=== PATIENT | female | born 1970 | race Caucasian/White ===

== ENCOUNTER 2017-02-02 21:08 | Emergency (ER) | payer OTHER ==
[~2017-02-02] VITALS: Ht 175.3 cm; Wt 90.7 kg
[~2017-02-02 21:08] MED LIST: BENTYL10 MG PO; BUSPIRONE HCL15 MG PO; CARBAMAZEPINE200 M2 PO; CARBAMAZEPINE400 M1 PO; CARBAMAZEPINE400 MG PO; CLONAZEPAM1 MG PO; CLONAZEPAM2 MG PO; DEPLIN15 MG PO; HYDROCODON-ACE1 EA10 PO; LAMICTAL200 MG PO; LAMOTRIGINE200 MG PO; LORAZEPAM1 MG PO; MIRENA1 EACH IY; NORCO 5-325 TA1 EACH PO; NUVARING VAGIN1 EACH VG; OMEPRAZOLE20 MG PO; OXCARBAZEPINE600 MG PO; PHENDIMETRAZIN105 MG PO; PRILOSEC20 MG PO; PRISTIQ ER50 MG PO; TEGRETOL XR400 MG PO; TEGRETOL200 MG PO; TOPAMAX200 MG PO; TOPAMAX50 MG PO; TRAZODONE HCL100 MG PO; VENTOLIN HFA18 GM; VIMPAT100 MG PO; VIMPAT150 MG PO; VIMPAT50 MG PO
[2017-02-03] MEDS ORDERED: ZOFRAN ODT4 MG PO (00:20)
== END 2017-02-03 00:53 | disposition home or self-care (01) ==
LOC: ED 21:08
DX: K29.70 Gastritis, unspecified, without bleeding (principal); R42 Dizziness and giddiness; K21.9 Gastro-esophageal reflux disease without esophagitis; F32.9 Major depressive disorder, single episode, unspecified; F41.9 Anxiety disorder, unspecified; Z98.51 Tubal ligation status; Z88.2 Allergy status to sulfonamides; Z79.899 Other long term (current) drug therapy
CPT/HCPCS: 70450; 80053; 81001; 84703; 85025; 96361; 96374; 96375; 99284; J1200; J2405; J2765; J7040

== ENCOUNTER 2017-12-22 14:24 | Emergency (ER) | payer OTHER ==
[~2017-12-22] VITALS: Ht 175.3 cm; Wt 90.7 kg
[~2017-12-22 14:24] MED LIST changes: +ZOFRAN ODT4 MG PO
[2017-12-22] MEDS ORDERED: NUVARING VAGIN1 EACH VAGINAL (14:45)
[2017-12-22] MEDS ORDERED: VALIUM5 MG PO (17:58)
--- NOTE | 2017-12-23 09:07 | EKG ---
[facility] [address] [facility] [place] [address] Signed Normal sinus rhythm Normal ECG No previous ECGs available Confirmed by MARIE DALE MD ([id number]) on 12/23/2017 9:07:08 AM Electronically Signed By: MARIE DALE MD 12/23/17 0907 PATIENT NAME: YOAN GUZMAN Electrocardiogram DATE OF : 70 PHYSICIAN: MARIE DALE MD REPORT #: [id number] REPORT IS CONFIDENTIAL AND NOT TO BE RELEASED WITHOUT AUTHORIZATION
== END 2017-12-22 18:28 | disposition home or self-care (01) ==
LOC: ED 14:24
DX: R09.1 Pleurisy (principal); B34.9 Viral infection, unspecified; F41.9 Anxiety disorder, unspecified; K21.9 Gastro-esophageal reflux disease without esophagitis; F32.9 Major depressive disorder, single episode, unspecified; Z88.2 Allergy status to sulfonamides; Z88.8 Allergy status to other drugs, medicaments and biological substances; Z79.899 Other long term (current) drug therapy
CPT/HCPCS: 71046; 80053; 84484; 85025; 93005; 93010; 96361; 96374; 96375; 99284; J1885; J2405; J7030

== ENCOUNTER 2018-09-23 18:41 | Emergency (ER) | payer OTHER ==
[~2018-09-23] VITALS: Ht 175.3 cm; Wt 90.7 kg
--- OUTSIDE RECORDS SUMMARY | ~2018-09-23 | XMS | Encounter Summary ---
Demographics + + + | Address | [address] [facility] [address] | | | [place] [address] | + + + | Home Phone | | + + + | Preferred Language | Unknown | + + + | Marital Status | | + + + | Hindu Affiliation | Unknown | + + + | Race | Unknown | + + + | Ethnic Group | Unknown | + + + Author + + + | Author | Maria Del Carmen [employer] | + + + | Organization | [facility] | + + + | Address | Unknown | + + + | Phone | Unavailable | + + + Support + + +---------+ + | Name | Relationship | Address | Phone | + + +---------+ + | Joseline Sepulveda | ECON | Unknown | | + + +---------+ + Care Team Providers + +------+ + | Care Cleaner And Polisher Name | Role | Phone | + +------+ + | Dena Vasquez PA-C | PCP | | + +------+ + Reason for Visit + + + | Reason | Comments | + + + | Medication Refill | problem | + + + Encounter Details +--------+--------+ + + + | Date | Type | Department | Care Team | Description | +--------+--------+ + + + | 08/08/ | Refill | [facility] | Laina Lutz, | | | 2019 | | [facility] | [address] | | | | | [address] | [place] | | | | | [place] | [address] | | | | | [address] | | | | | | [phone] | | | +--------+--------+ + + + Social History + +-------+ +--------+------+ | Tobacco Use | Types | Packs/Day | Years | Date | | | | | Used | | + +-------+ +--------+------+ | Former Smoker | | | | | + +-------+ +--------+------+ + +---+---+---+ | Smokeless Tobacco: | | | | | Never Used | | | | + +---+---+---+ + + +---------+ + | Alcohol Use | Drinks/We | oz/Week | Comments | | | ek | | | + + +---------+ + | No | 0 | 0.0 | | | | Standard | | | | | drinks or | | | | | | | | | | equivalen | | | | | t | | | + + +---------+ + + + + | Sex Assigned at | Date Recorded | | | | + + + | Not on file | | + + + as of this encounter Plan of Treatment +--------+---------+ + + + | Date | Type | Specialty | Care Team | Description | +--------+---------+ + + + | 12/25/ | Office | Neurology | Laina Lutz, | | | 2019 | Visit | | MD [address] | | | | | | [place] | | | | | | [address] | | | | | | | | +--------+---------+ + + + as of this encounter Visit Diagnoses Not on filein this encounter"
--- OUTSIDE RECORDS SUMMARY | ~2018-09-23 | XMS | Clinical Summary ---
Demographics + + + | Address | [address] [facility] [address] | | | [place] [address] | + + + | Home Phone | | + + + | Preferred Language | Unknown | + + + | Marital Status | | + + + | Adventist Affiliation | Unknown | + + + | Race | Unknown | + + + | Ethnic Group | Unknown | + + + Author + + + | Author | Maria Del Carmen [employer] | + + + | Organization | [facility] | + + + | Address | Unknown | + + + | Phone | Unavailable | + + + Support + + +---------+ + | Name | Relationship | Address | Phone | + + +---------+ + | Joseline Sepulveda | ECON | Unknown | | + + +---------+ + Care Team Providers + +------+ + | Care Railroad Police Officer Name | Role | Phone | + +------+ + | Dena Vasquez PA-C | PP | | + +------+ + Allergies + + + + + + | Active Allergy | Reactions | Severity | Noted | Comments | | | | | Date | | + + + + + + | Levetiracetam | Itching | Medium | 12/04/19 | | | | | | 15 | | + + + + + + | Sulfa Antibiotics | Nausea Only, Other | Medium | 11/29/19 | Head pain per | | | (See Comments) | | 14 | patient | + + + + + + Current Medications + + +--------+---------+------+------+-------+ | Prescription | Sig. | Disp. | Refills | Star | End | Statu | | | | | | t | Date | s | | | | | | Date | | | + + +--------+---------+------+------+-------+ | traZODone | Take 100 mg by mouth | | | | | Activ | | (DESYREL) 100 MG | nightly. | | | | | e | | tablet | | | | | | | + + +--------+---------+------+------+-------+ | omeprazole | Take 20 mg by mouth | | | | | Activ | | (PRILOSEC) 20 MG | nightly. | | | | | e | | capsule | | | | | | | + + +--------+---------+------+------+-------+ | CALCIUM CARBONATE | Take 500 mg by mouth | | | | | Activ | | PO | 2 (two) times | | | | | e | | | daily. | | | | | | + + +--------+---------+------+------+-------+ | fish oil-omega-3 | Take 1,000 mg by | | | | | Activ | | fatty acids 1000 MG | mouth 2 (two) times | | | | | e | | capsule | daily. | | | | | | + + +--------+---------+------+------+-------+ | cyanocobalamin | Take 500 mcg by | | | | | Activ | | (VITAMIN B-12) 500 | mouth daily. | | | | | e | | MCG tablet | | | | | | | + + +--------+---------+------+------+-------+ | busPIRone (BUSPAR) | Take 15 mg by mouth | | | | | Activ | | 15 MG tablet | 2 (two) times daily. | | | | | e | + + +--------+---------+------+------+-------+ | L-methylfolate | Take 7.5 mg by mouth | | | | | Activ | | (DEPLIN) 7.5 MG | daily with | | | | | e | | tablet | breakfast. | | | | | | + + +--------+---------+------+------+-------+ | lamoTRIgine | take 1 and 2 | 90 | 5 | 10/1 | | Activ | | (LAMICTAL) 200 MG | tablets by mouth | tablet | | 5/20 | | e | | tablet | every morning and | | | 18 | | | | | every evening | | | | | | + + +--------+---------+------+------+-------+ | OXcarbazepine | take 1 tablet by | 75 | 5 | 10/1 | | Activ | | (TRILEPTAL) 600 MG | mouth every morning | tablet | | 5/20 | | e | | tabletIndications: | and 1 and 1/2 | | | 18 | | | | Refractory epilepsy | tablets by mouth | | | | | | | (HCC) | every evening | | | | | | + + +--------+---------+------+------+-------+ | topiramate | Take 1 tablet by | 60 | 5 | 10/1 | | Activ | | (TOPAMAX) 200 MG | mouth 2 (two) times | tablet | | 5/20 | | e | | tablet | daily. | | | 18 | | | + + +--------+---------+------+------+-------+ | topiramate | Take 1 tablet by | 30 | 5 | 10/1 | | Activ | | (TOPAMAX) 50 MG | mouth every evening. | tablet | | 5/20 | | e | | tablet | | | | 18 | | | + + +--------+---------+------+------+-------+ | clonazePAM | Take 1 tablet by | 30 | 5 | 02/0 | | Activ | | (KLONOPIN) 1 MG | mouth nightly. | tablet | | 4/20 | | e | | tablet | | | | 19 | | | + + +--------+---------+------+------+-------+ Active Problems + + + | Problem | Noted Date | + + + | Convulsions ([facility]) | 08/17/2015 | + + + | Seizure disorder ([facility]) | 11/28/2013 | + + + Encounters +--------+ + + + + | Date | Type | Specialty | Care Team | Description | +--------+ + + + + | 09/20/ | Telephone | | Laina Lutz | Follow-up | | 2018 | | | MD | | +--------+ + + + + | 08/13/ | Telephone | | Chris Tompkins, | | | 2018 | | | MA | | +--------+ + + + + | 08/08/ | Refill | | Laina Lutz, | | | 2018 | | | MD | | +--------+ + + + + | 07/16/ | Telephone | | Laina Lutz, | Labs Only | | 2018 | | | MD | | +--------+ + + + + | 06/29/ | Documentati | | Linda Slater, | Labs Only ([facility] | | 2017 | on Only | | RETREAD BUILDER | lab 05/14/2018) | +--------+ + + + + from Last 3 Months Family History + + +------+ + | Medical History | Relation | Name | Comments | + + +------+ + | Hypertension | Mother | | | + + +------+ + | Stroke | Mother | | | + + +------+ + | Cancer | Other | | per patient "grandmother & aunt" | + + +------+ + + +------+--------+ + | Relation | Name | Status | Comments | + +------+--------+ + | Mother | | | | + +------+--------+ + | Other | | | | + +------+--------+ + Social History + +-------+ +--------+------+ | Tobacco Use | Types | Packs/Day | Years | Date | | | | | Used | | + +-------+ +--------+------+ | Former Smoker | | | | | + +-------+ +--------+------+ + +---+---+---+ | Smokeless Tobacco: | | | | | Never Used | | | | + +---+---+---+ + + | Tobacco Cessation: Counseling Given: No | + + + + +---------+ + | Alcohol Use [...] on file | | + + + Last Filed Vital Signs + + + + | Vital Sign | Reading | Time Taken | + + + + | Blood Pressure | 126/86 | 06/20/2018 11:13 AM PST | + + + + | Pulse | 86 | 06/20/2018 11:13 AM PST | + + + + | Temperature | - | - | + + + + | Respiratory Rate | 16 | 02/15/2017 9:31 AM PDT | + + + + | Oxygen Saturation | 98% | 06/20/2018 11:13 AM PST | + + + + | Inhaled Oxygen | - | - | | Concentration | | | + + + + | Weight | 92.5 kg (204 lb) | 06/20/2018 11:13 AM PST | + + + + | Height | 175.3 cm (5' 9") | 06/20/2018 11:13 AM PST | + + + + | Body Mass Index | 30.13 | 06/20/2018 11:13 AM PST | + + + + Plan of Treatment +--------+---------+ + + + | Date | Type | Specialty | Care Team | Description | +--------+---------+ + + + | 12/25/ | Office | | Laina Lutz, | | | 2019 | Visit | | MD [address] | | | | | | [place] | | | | | | [address] | | | | | | | | +--------+---------+ + + + + + + + + | Health Maintenance | Due Date | Last Done | Comments | + + + + + | Vaccine: | | | | | Dtap/Tdap/Td (1 - | 0 | | | | Tdap) | | | | + + + + + | Cervical Cancer | | | | | Screening (Pap) | 1 | | | + + + + + | Vaccine: Influenza | | | | | (#1) | 8 | | | + + + + + Results Not on filefrom Last 3 Months Insurance + +--------+ +------+-------+ + | Payer | Benefi | Subscriber | Type | Phone | Address | | | t Plan | ID | | | | | | / | | | | | | | Group | | | | | + +--------+ +------+-------+ + | MEDICAID | DONOVAN | [id number] | | | [address] | | | N | | | | [place], [place] | | | [place] | | | | [address] | | | [employer] | | | | | + +--------+ +------+-------+ + + +--------+ +--------+ + + | Guarantor Name | Accoun | Relation to | Date | Phone | Billing Address | | | t Type | Patient | of | | | | | | | | | | + +--------+ +--------+ + + | | Person | Self [birth year] Home: | [address] | | | al/Fam | | 1971 | [phone] | [address] [place] | | | [place] | | | [phone] | + +--------+ +--------+ + +
--- OUTSIDE RECORDS SUMMARY | ~2018-09-23 | XMS | Encounter Summary ---
Demographics + + + | Address | [address] [facility] [address] | | | [place] [address] | + + + | Home Phone | | + + + | Preferred Language | Unknown | + + + | Marital Status | | + + + | Judaism Affiliation | Unknown | + + + | Race | Unknown | + + + | Ethnic Group | Unknown | + + + Author + + + | Author | Maria Del Carmen [employer] | + + + | Organization | [facility] | + + + | Address | Unknown | + + + | Phone | Unavailable | + + + Support + + +---------+ + | Name | Relationship | Address | Phone | + + +---------+ + | Joseline Sepulveda | ECON | Unknown | | + + +---------+ + Care Team Providers + +------+ + | Care Splash Line Operator Name | Role | Phone | + +------+ + | Dena Vasquez PA-C | PCP | | + +------+ + Reason for Visit + + + | Reason | Comments | + + + | Labs Only | [facility] lab 05/14/2018 | + + + Encounter Details +--------+ + + + + | Date | Type | Department | Care Team | Description | +--------+ + + + + | 06/29/ | Documentati | Jayne | Linda Slater, | Labs Only ([facility] | | 2018 | on Only | [facility] | WASH TUB MACHINE OPERATOR | lab 05/14/2018) | | | | [address] | | | | | | [place] | | | | | | [address] | | | | | | [phone] | | | +--------+ + + + + Social History + +-------+ [...] [place] | | | | | | [address] | | | | | | | | +--------+---------+ + + + as of this encounter Visit Diagnoses Not on filein this encounter"
--- OUTSIDE RECORDS SUMMARY | ~2018-09-23 | XMS | Encounter Summary ---
Demographics + + + | Address | [address] [facility] [address] | | | [place] [address] | + + + | Home Phone | | + + + | Preferred Language | Unknown | + + + | Marital Status | | + + + | Religion Affiliation | Unknown | + + + | Race | Unknown | + + + | Ethnic Group | Unknown | + + + Author + + + | Author | Maria Del Carmen [employer] | + + + | Organization | [facility] | + + + | Address | Unknown | + + + | Phone | Unavailable | + + + Support + + +---------+ + | Name | Relationship | Address | Phone | + + +---------+ + | Joseline Sepulveda | ECON | Unknown | | + + +---------+ + Care Team Providers + +------+ + | Care Dipping Machine Operator Name | Role | Phone | [...] | on Only | [facility] | REVISING CLERK | lab 05/14/2018) | | | | [address] | | | | | | [place] | | | | | | [address] | | | | | | [phone] | | | +--------+ + + + [...] [place] | | | | | | [address] | | | | | | | | +--------+---------+ + + + as of this encounter Visit Diagnoses Not on filein this encounter"
--- OUTSIDE RECORDS SUMMARY | ~2018-09-23 | XMS | Clinical Summary ---
Demographics + + + | Address | [address] [facility] [address] | | | [place] [address] | + + + | Home Phone | | + + + | Preferred Language | Unknown | + + + | Marital Status | Single | + + + | Confucianism Affiliation | Unknown | + + + | Race | Unknown | + + + | Ethnic Group | Unknown | + + + Author + + + | Author | [facility] | | | and [place] | + + + | Organization | [facility] | | | and [place] | + + + | Address | Unknown | + + + | Phone | Unavailable | + + + Support + + +---------+ + | Name | Relationship | Address | Phone | + + +---------+ + | Lizett Hernandez | ECON | Unknown | | + + +---------+ + | Joseline Sepulveda | ECON | Unknown | | + + +---------+ + Care Team Providers + +------+ + | Care Tool Coordinator Name | Role | Phone | + +------+ + | Dena Vasquez PA-C | PP | Unavailable | + +------+ + Allergies + + + +--------+ + | Active Allergy | Reactions | Severity | Noted | Comments | | | | | Date | | + + + +--------+ + | Carbamazepine | | | | | + + + +--------+ + | Miconazole | | | | | + + + +--------+ + | Sulfamethoxazole | | | | | + + + +--------+ + Current Medications + + +-------+---------+------+------+-------+ | Prescription | Sig. | Disp. | Refills | Star | End | Statu | | | | | | t | Date | s | | | | | | Date | | | + + +-------+---------+------+------+-------+ | solifenacin | Take as directed | | | 03/10 | | Activ | | (VESICARE) 5 mg | | | | 4/20 | | e | | tablet | | | | 12 | | | + + +-------+---------+------+------+-------+ | | Use ring vaginally | | | 03/10 | | Activ | | etonogestrel-ethinyl | as directed every 21 | | | 10/27 | | e | | estradiol | days | | | 12 | | | | (NUVARING) | | | | | | | | 0.12-0.015 MG/24HR | | | | | | | | vaginal ring | | | | | | | + + +-------+---------+------+------+-------+ | albuterol (PROAIR | Inhale 2 puffs every | | | 03/10 | | Activ | | HFA) 90 mcg/puff | 4 hours as needed | | | 10/27 | | e | | inhaler | for shortness of | | | 12 | | | | | breath | | | | | | + + +-------+---------+------+------+-------+ | omeprazole | Take 20 mg by mouth | | | 03/10 | | Activ | | (PRILOSEC) 20 mg | Daily. | | | 10/27 | | e | | TBEC | | | | 12 | | | + + +-------+---------+------+------+-------+ | cyclobenzaprine | Take 10 mg by mouth | | | 09/1 | | Activ | | (FLEXERIL) 10 mg | nightly. | | | 420 | | e | | tablet | | | | 12 | | | + + +-------+---------+------+------+-------+ | topiramate | Take 200 mg by mouth | | | 03/10 | | Activ | | (TOPAMAX) 200 MG | 2 times daily. | | | 10/27 | | e | | tablet | | | | 12 | | | + + +-------+---------+------+------+-------+ | | TABS - Take 1 tablet | | | 03/10 | | Activ | | Kjbixkpz-Jot-Pd-FA | by mouth once daily | | | 420 | | e | | ( PO) | | | | 12 | | | + + +-------+---------+------+------+-------+ | promethazine | Take 25 mg by mouth | | | 091 | | Activ | | (PHENERGAN) 25 mg | 3 times daily. | | | 10/27 | | e | | tablet | | | | 12 | | | + + +-------+---------+------+------+-------+ | lamotrigine | Take 1-/2 tablets | | | 03/10 | | Activ | | (LAMICTAL) 200 MG | by mouth two times | | | 4/20 | | e | | tablet | daily | | | 12 | | | + + +-------+---------+------+------+-------+ | carBAMazepine | Take 2 by mouth | | | 03/10 | | Activ | | (TEGRETOL XR) 400 MG | twice daily | | | 4/20 | | e | | 12 hr tablet | | | | 12 | | | + + +-------+---------+------+------+-------+ | Levonorgestrel | device - use as | | | 1 | | Activ | | (MIRENA IU) | directed | | | 4/20 | | e | | | | | | 12 | | | + + +-------+---------+------+------+-------+ | LORazepam (ATIVAN) | Take as directed | | | 09/1 | | Activ | | 0.5 mg tablet | when needed. | | | 4/20 | | e | | | | | | 12 | | | + + +-------+---------+------+------+-------+ | traZODone | Take 100 mg by mouth | | | 09/1 | | Activ | | (DESYREL) 100 mg | nightly. | | | 4/20 | | e | | tablet | | | | 12 | | | + + +-------+---------+------+------+-------+ | clonazePAM | Take 1 mg by mouth | | | 09/1 | | Activ | | (KLONOPIN) 1 mg | nightly. | | | 4/20 | | e | | tablet | | | | 12 | | | + + +-------+---------+------+------+-------+ | ETODOLAC | TABS - Lodine 600 mg | | | 09/1 | | Activ | | | by mouth two times | | | 4/20 | | e | | | daily | | | 12 | | | + + +-------+---------+------+------+-------+ | | Take 5-500 mg by | | | /1 | | Activ | | HYDROcodone-acetamin | mouth 3 times daily. | | | 4/20 | | e | | ophen (VICODIN) | | | | 12 | | | | 5-500 mg per tablet | | | | | | | + + +-------+---------+------+------+-------+ | pseudoePHEDrine | Take 2 tablets three | | | / | | Activ | | (SUDAFED) 30 mg | times daily | | | 4/20 | | e | | tablet | | | | 12 | | | + + +-------+---------+------+------+-------+ | | Take 2 by mouth | | | 09/1 | | Activ | | dextromethorphan-gua | twice daily | | | 4/20 | | e | | ifenesin (MUCINEX | | | | 12 | | | | DM) 30-600 MG per 12 | | | | | | | | hr tablet | | | | | | | + + +-------+---------+------+------+-------+ Active Problems + + + | Problem | Noted Date | + + + | Thoracic back pain | 05/15/2014 | + + + | Lumbar radiculopathy | 12/24/2013 | + + + | DDD (degenerative disc disease), lumbar - especially L5-S1 | 12/24/2013 | + + + | Chronic low back pain | 12/24/2013 | + + + | DEPRESSION | | + + + | Mixed anxiety depressive disorder | | + + + | DYSMENORRHEA | | + + + | 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 | | + + + | MIGRAINE, MENSTRUAL | | + + + + + | Overview: ICD-10 Record update | + + + +---+ | SEIZURE DISORDER | | + +---+ | ASTHMA | | + +---+ | ESOPHAGEAL REFLUX | | + +---+ Family History + + +------+ + | Medical History | Relation | Name | Comments | + + +------+ + | Alcohol abuse | Father | | | + + +------+ + | Alcohol abuse | Mother | | | + + +------+ + | Cancer | Mother | | | + + +------+ + | High blood pressure | Mother | | | + + +------+ + | Mental illness | Mother | | | + + +------+ + | Stroke | Mother | | | + + +------+ + + +------+--------+ + | Relation | Name | Status | Comments | + +------+--------+ + | Father | | | | + +------+--------+ + | Mother | | | | + +------+--------+ + Social History + + + +--------+ + | Tobacco Use | Types | Packs/Day | Years | Date | | | | | Used | | + + + +--------+ + | Former Smoker | Cigarettes | 1 | 5 | Quit: 12/24/2009 | + + + +--------+ + + + + | Sex Assigned at | Date Recorded | | | | + + + | Not on file | | + + + Last Filed Vital Signs + + + + | Vital Sign | Reading | Time Taken | + + + + | Blood Pressure | 105/73 | 05/15/2014940 PST | + + + + | Pulse | 78 | 05/15/2014940 PST | + + + + | Temperature | - | - | + + + + | Respiratory Rate | - | - | + + + + | Oxygen Saturation | - | - | + + + + | Inhaled Oxygen | - | - | | Concentration | | | + + + + | Weight | 103.4 kg (228 lb) | 05/15/2014940 PST | + + + + | Height | 175.3 cm (5' 9") | 05/15/2014940 PST | + + + + | Body Mass Index | 33.67 | 05/15/2014940 PST | + + + + Plan of Treatment + + + + + | Health [...] filefrom Last 3 Months Insurance + +--------+ +--------+ +---------+ | Payer | Benefi | Subscriber | Type | Phone | Address | | | t Plan | ID | | | | | | / | | | | | | | Group | | | | | + +--------+ +--------+ +---------+ | [employer] | MODA | [id number] | Medica | [phone] | | MEDICAID HMO | HEALTH | | id | [phone] | | | | MDCD | | | | | | | [place]MO [place] | | | | | + +--------+ +--------+ +---------+ + +--------+ +--------+ + + | Guarantor Name | Accoun | Relation to | Date | Phone | Billing Address | | | t Type | Patient | of | | | | | | | | | | + +--------+ +--------+ + + | YOAN GUZMAN | Person | Self [birth year] Home: | [address] | | | al/Fam | | 1971 | [phone] | [address] [place] | | | [place] | | | [phone] | [phone] | + +--------+ +--------+ + +
--- OUTSIDE RECORDS SUMMARY | ~2018-09-23 | XMS | Encounter Summary ---
Demographics + + + | Address | [address] [facility] [address] | | | [place] [address] | + + + | Home Phone | | + + + | Preferred Language | Unknown | + + + | Marital Status | | + + + | Druze Affiliation | Unknown | + + + | Race | Unknown | + + + | Ethnic Group | Unknown | + + + Author + + + | Author | Maria [facility] [employer] | + + + | Organization | [facility] | + + + | Address | Unknown | + + + | Phone | Unavailable | + + + Support + + +---------+ + | Name | Relationship | Address | Phone | + + +---------+ + | Joseline Sepulveda | ECON | Unknown | | + + +---------+ + Care Team Providers + +------+ + | Care Operational Risk Analyst Name | Role | Phone | + +------+ + | Dena Vasquez PA-C | PCP | | + +------+ + Encounter Details +--------+ + + + + | Date | Type | Department | Care Team | Description | +--------+ + + + + | 08/13/ | Telephone | Jayne | Chris Tompkins, | | | 2018 | | [facility] [place] | [facility] | | | | | [address] | | | | | | [place] | | | | | | [address] | | | | | | [phone] | | | +--------+ + + + [...] Neurology | Laina Lutz, | | | 2018 | Visit | | MD [address] | | | | | | [place] | | | | | | [address] | | | | | | | | +--------+---------+ + + + as of this encounter Visit Diagnoses Not on filein this encounter"
--- OUTSIDE RECORDS SUMMARY | ~2018-09-23 | XMS | Encounter Summary ---
Demographics + + + | Address | [address] [facility] [address] | | | [place] [address] | + + + | Home Phone | | + + + | Preferred Language | Unknown | + + + | Marital Status | | + + + | Evangelical Affiliation | Unknown | + + + | Race | Unknown | + + + | Ethnic Group | Unknown | + + + Author + + + | Author | Maria Del Carmen Arden Reed | + + + | Organization | [facility] | + + + | Address | Unknown | + + + | Phone | Unavailable | + + + Support + + +---------+ + | Name | Relationship | Address | Phone | + + +---------+ + | Joseline Sepulveda | ECON | Unknown | | + + +---------+ + Care Team Providers + +------+ + | Care Digital Asset Specialist Name | Role | Phone | + +------+ + | Dena Vasquez PA-C | PCP | | + +------+ + Reason for Visit + + + | Reason | Comments | + + + | Follow-up | | + + + Encounter Details +--------+ + + + + | Date | Type | Department | Care Team | Description | +--------+ + + + + | 09/20/ | Telephone | Jayne | Laina Lutz, | Follow-up | | 2019 | | [facility] | [address] | | | | | [address] | [facility] [place] | | | | | [place] | [address] | | | | | [address] | | | | | | [phone] | | | +--------+ + + + [...] [place] | | | | | | [address] | | | | | | | | +--------+---------+ + + + as of this encounter Visit Diagnoses Not on filein this encounter"
--- OUTSIDE RECORDS SUMMARY | ~2018-09-23 | XMS | Encounter Summary ---
Demographics + + + | Address | [address] [facility] [address] | | | [place] [address] | + + + | Home Phone | | + + + | Preferred Language | Unknown | + + + | Marital Status | | + + + | Nondenominational Affiliation | Unknown | + + + | Race | Unknown | + + + | Ethnic Group | Unknown | + + + Author + + + | Author | Maria Del Carmen [facility] | + + + | Organization | [facility] | + + + | Address | Unknown | + + + | Phone | Unavailable | + + + Support + + +---------+ + | Name | Relationship | Address | Phone | + + +---------+ + | Joseline Sepulveda | ECON | Unknown | | + + +---------+ + Care Team Providers + +------+ + | Care Miter Cutter Name | Role | Phone | + [...] | | | | [place] | [address] | | | | | [address] | | | | | | [phone] | | | +--------+--------+ + + + [...] [place] | | | | | | [address] | | | | | | | | +--------+---------+ + + + as of this encounter Visit Diagnoses Not on filein this encounter"
--- OUTSIDE RECORDS SUMMARY | ~2018-09-23 | XMS | Encounter Summary ---
Demographics + + + | Address | [address] [facility] [address] | | | [place] [address] | + + + | Home Phone | | + + + | Preferred Language | Unknown | + + + | Marital Status | | + + + | Episcopalian Affiliation | Unknown | + + + | Race | Unknown | + + + | Ethnic Group | Unknown | + + + Author + + + | Author | Maria Del Carmen [employer] | + + + | Organization | [email or web address] | + + + | Address | Unknown | + + + | Phone | Unavailable | + + + Support + + +---------+ + | Name | Relationship | Address | Phone | + + +---------+ + | Joseline Sepulveda | ECON | Unknown | | + + +---------+ + Care Team Providers + +------+ + | Care Business And Services Instructor Name | Role | Phone | + +------+ + | Dena Vasquez PA-C | PCP | | + +------+ + Encounter Details +--------+ + + + + | Date | Type | Department | Care Team | Description | +--------+ + + + + | 08/13/ | Telephone | Jayne | Chris Tompkins, | | | 2018 | | [facility] | [facility] | | | | | [address] | | | | | | [place] | | | | | | [address] | | | | | | [phone] | | | +--------+ + + + [...] | | | | | [place] | | | | | | [address] | | | | | | | | +--------+---------+ + + + as of this encounter Visit Diagnoses Not on filein this encounter"
--- OUTSIDE RECORDS SUMMARY | ~2018-09-23 | XMS | Clinical Summary ---
Demographics + + + | Address | [address] | | | [place] [address] | + + + | Home Phone | | + + + | Preferred Language | Unknown | + + + | Marital Status | Single | + + + | Alevism Affiliation | NRP | + + + | Race | White | + + + | Ethnic Group | Not or | + + + Author + + + | Author | NON REVENUE LOCATIONS | + + + | Organization | NON REVENUE LOCATIONS | + + + | Address | Unknown | + + + | Phone | Unavailable | + + + Support + + +---------+ + | Name | Relationship | Address | Phone | + + +---------+ + | PRISCILLA ARCE | ECON | Unknown | | + + +---------+ + Care Team Providers + +------+ + | Care Veneer Drier Name | Role | Phone | + +------+ + | Dena Vasquez | PP | Unavailable | + +------+ + Source Comments TORY is fully live on both [facility] Ambulatory and [facility] InPatient.[facility] Allergies + + + + + + | Active Allergy | Reactions | Severity | Noted | Comments | | | | | Date | | + + + + + + | Levetiracetam | Hives | Medium | 12/10/19 | | | | | | 16 | | + + + + + + | Sulfa (Sulfonamide | Headache, Nausea and | Medium | 01/16/20 | Took once and was | | Antibiotics) | Vomiting | | 15 | nauseated and | | | | | | experienced light | | | | | | sensitivity | + + + + + + | Sulfacetamide Sodium | Nausea | Medium | 12/10/19 | Head pain per | | | | | 16 | patient | + + + + + + | Sulfamethoxazole | Nausea | | 12/10/19 | | | | | | 16 | | + + + + + + Current Medications + + + +---------+------+------+-------+ | Prescription | Sig. | Disp. | Refills | Star | End | Statu | | | | | | t | Date | s | | | | | | Date | | | + + + +---------+------+------+-------+ | | Place 1 each into | | | 03/10 | | Activ | | etonogestrel-ethinyl | the vagina once. | | | 10/27 | | e | | estradiol | Every 21 Days | | | 12 | | | | (NUVARING) | | | | | | | | 0.12-0.015 mg/24 hr | | | | | | | | vaginal ring | | | | | | | + + + +---------+------+------+-------+ | lamoTRIgine | Take 300 mg by mouth | | | 03/10 | | Activ | | (LAMICTAL) 200 mg | two times daily. | | | 10/27 | | e | | oral tablet | | | | 12 | | | + + + +---------+------+------+-------+ | levonorgestrel | Place 1 Units into | | | 03/10 | | Activ | | (MIRENA) 20 mcg/24 | the vagina once. | | | 10/27 | | e | | hr (5 years) | | | | 12 | | | | intrauterine | | | | | | | | intrauterine device | | | | | | | + + + +---------+------+------+-------+ | LORazepam 0.5 mg | Take 0.25 mg by | | | 03/10 | | Activ | | oral tablet | mouth once daily as | | | 10/27 | | e | | | needed (for severe | | | 12 | | | | | anxiety or panic | | | | | | | | attack). | | | | | | + + + +---------+------+------+-------+ | traZODone 100 mg | Take 200 mg by mouth | | | 03/10 | | Activ | | oral tablet | once daily at | | | 420 | | e | | | bedtime. For sleep | | | 12 | | | + + + +---------+------+------+-------+ | BUSPIRONE 15 mg | Take 15 mg by mouth | | 0 | 05/2 | | Activ | | oral tablet | two times daily. | | | 12/27 | | e | | | | | | 15 | | | + + + +---------+------+------+-------+ | Desvenlafaxine | Take 50 mg by mouth | | | | | Activ | | (PRISTIQ) 50 mg oral | once daily in the | | | | | e | | tablet extended | morning. | | | | | | | release 24 hr | | | | | | | + + + +---------+------+------+-------+ | | use as directed | 1 each | 0 | 01/07 | | Activ | | etonogestrel-ethinyl | | | | 10/27 | | e | | estradiol | | | | 15 | | | | (NUVARING) | | | | | | | | 0.12-0.015 mg/24 hr | | | | | | | | vaginal ring | | | | | | | + + + +---------+------+------+-------+ | OXcarbazepine 600 | Take 600 mg by mouth | | | | | Activ | | mg oral tablet | two times daily. | | | | | e | + + + +---------+------+------+-------+ | VIT | Take 1 tablet by | | | | | Activ | | W-CA,FE,FA,<1 MG, | mouth once daily. | | | | | e | | ( #2 ORAL) | | | | | | | + + + +---------+------+------+-------+ | | Take 1 tablet by | | | | | Activ | | AYBFIBST-BEE-FHUUVRE | mouth two times | | | | | e | | IT-VIT D3 ORAL | daily. | | | | | | + + + +---------+------+------+-------+ | | Take 1-2 tablets by | | | | | Activ | | HYDROcodone-acetamin | mouth four times | | | | | e | | ophen 5-325 mg oral | daily as needed for | | | | | | | tablet | severe pain. | | | | | | + + + +---------+------+------+-------+ | promethazine 25 mg | Take 12.5-25 mg by | | | | | Activ | | oral tablet | mouth every eight | | | | | e | | | hours as needed for | | | | | | | | nausea/vomiting. | | | | | | + + + +---------+------+------+-------+ | sodium fluoride | Place 1 g onto the | | | | | Activ | | (SF 5000 PLUS) 1.1 % | teeth once daily. | | | | | e | | dental cream | USE A PEA SIZED | | | | | | | | AMOUNT, SPIT BUT | | | | | | | | DONT EAT, DRINK OR | | | | | | | | RINSE FOR 30 MINUTES | | | | | | + + + +---------+------+------+-------+ | triamcinolone | Apply to affected | 15 g | 0 | 09/0 | | Activ | | acetonide 0.1 % | area two times | | | 2/20 | | e | | topical ointment | daily. Apply thin | | | 16 | | | | | film to affected | | | | | | | | areas for 2 weeks | | | | | | + + + +---------+------+------+-------+ | topiramate 200 mg | Take 1 tablet by | 30 | 3 | 09/0 | | Activ | | oral tablet | mouth once daily in | tablet | | 2/20 | | e | | | the morning. | | | 16 | | | + + + +---------+------+------+-------+ | topiramate 50 mg | Take 5 tablets by | 30 | 0 | 09/0 | | Activ | | oral tablet | mouth once daily in | tablet | | 2/20 | | e | | | the evening. | | | 16 | | | + + + +---------+------+------+-------+ | clonazePAM 1 mg | Take 1 tablet by | 30 | 3 | 11/1 | | Activ | | oral tablet | mouth once daily at | tablet | | 8/20 | | e | | | bedtime. For | | | 16 | | | | | nocturnal seizures, | | | | | | | | anxiety and sleep; | | | | | | | | further refills | | | | | | | | through Dr. Garcia or | | | | | | | | primary care | | | | | | | | provider following | | | | | | | | discussion - not to | | | | | | | | be refilled at [facility] | | | | | | + + + +---------+------+------+-------+ Active Problems + + | Patient Care Coordination Note | + + | I don't know if Amber is on your presurgical list. She's a candidate but not | | interested in surgery. She never ended up getting her MRI. If she's on your list, | | you can add this information to her record. Otherwise no need to do anything further. | | Per Dr. Malloy January 2015 | | | |Per Dr. 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/11/2015 | | with complex partial seizures, intractable, without status | | | epilepticus (HCC) | | + + + | Clinical depression | 01/15/2015 | + + + | Dysmenorrhea | 01/15/2015 | + + + | Acid reflux | 01/15/2015 | + + + | Female genuine stress incontinence | 01/15/2015 | + + + | Menstrual molimen | 01/15/2015 | + + + | Anxiety and depression | 01/15/2015 | + + + | Attack, epileptiform (HCC) | 01/15/2015 | + + + | Back pain, thoracic | 05/15/2014 | + + + | Chronic LBP | 12/24/2013 | + + + | DDD (degenerative disc disease), lumbar | 12/24/2013 | + + + | Lumbar radiculopathy | 12/24/2013 | + + + | Degeneration of intervertebral disc of lumbar region | 12/24/2013 | + + + Social History + + + +--------+ + | Tobacco Use | Types | Packs/Day | Years | Date | | | | | Used | | + + + +--------+ + | Former Smoker | Cigarettes | | | Quit: 01/20/2010 | + + + +--------+ + + +---+---+---+ | Smokeless Tobacco: | | | | | Never Used | | | | + +---+---+---+ + + | Comments: smoked cigarettes off and on for several years- quit 5 yrs ago | + + + + +---------+ + | Alcohol Use | Drinks/We | oz/Week | Comments | | | ek | | | + + +---------+ + | No | | | | + + +---------+ + + + + | Sex Assigned at | Date Recorded | | | | + + + | Not on file | | + + + Last Filed Vital Signs + + + + | Vital Sign | Reading | Time Taken | + + + + | Blood Pressure | 134/84 | 05/27/2016 1:43 PM PST | + + + + | Pulse | 82 | 05/27/2016 1:43 PM PST | + + + + | Temperature | 36.6 C (97.9 F) | 03/11/2016 8:06 AM PDT | + + + + | Respiratory Rate | 16 | 03/11/2016 8:06 AM PDT | + + + + | Oxygen Saturation | 99% | 03/11/2016 8:06 AM PDT | + + + + | Inhaled Oxygen | - | - | | Concentration | | | + + + + | Weight | 90.7 kg (200 lb) | 05/27/2016 1:43 PM PST | + + + + | Height | 175.3 cm (5' 9") | 03/07/2016 10:14 AM PDT | + + + + | Body Mass Index | 29.53 | 05/27/2016 1:43 PM PST | + + + + Plan of Treatment + + + + + | Health Maintenance | Due Date | Last Done | Comments | + + + + + | Influenza (Flu) | | | | | vaccination (#1) | 8 | | | + + + + + Results Not on filefrom Last 3 Months Insurance + +--------+ +--------+-------+---------+ | Payer | Benefi | Subscriber | Type | Phone | Address | | | t Plan | ID | | | | | | / | | | | | | | Group | | | | | + +--------+ +--------+-------+---------+ | GOVERNMENT CONTRACTS MANAGER MEDICAID | GOVERNMENT CONTRACTS MANAGER | xxxxxxxx | Medica | | | | | [place] | | id | | | | | [place] | | | | | + +--------+ +--------+-------+---------+ + +--------+ +--------+ + + | Guarantor Name | Accoun | Relation to | Date | Phone | Billing Address | | | t Type | Patient | of | | | | | | | | | | + +--------+ +--------+ + + | BENITA,PAM M | Person | Self [birth year] Home: | [address] | | | al/Fam | | 1971 | [phone] | [address] [place] | | | [place] | | | [phone] | + +--------+ +--------+ + +
--- OUTSIDE RECORDS SUMMARY | ~2018-09-23 | XMS | Clinical Summary ---
Demographics + + + | Address | [address] [facility] [address] | | | [place] [address] | + + + | Home Phone [...] + | Author | Maria Del Carmen [employer] | + + + | Organization | [facility] | + + + | Address | Unknown | + + + | Phone | Unavailable | + + + Support + + +---------+ + | Name | Relationship | Address | Phone | + + +---------+ + | Joseline Sepulveda | ECON | Unknown | | + + +---------+ + Care Team Providers + +------+ + | Care Manager Surgery Name | Role | Phone | + [...] Date | + + + | Convulsions ([facility]) | 08/17/2015 | + + + | Seizure disorder ([facility]) | 11/28/2013 | + + [...] | 2017 | on Only | | 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
--- OUTSIDE RECORDS SUMMARY | ~2018-09-23 | XMS | Encounter Summary ---
Demographics + + + | Address | [address] [facility] [address] | | | [place] [address] | + + + | Home Phone | | + + + | Preferred Language | Unknown | + + + | Marital Status | | + + + | Mosque Affiliation | Unknown | + + + | Race | Unknown | + + + | Ethnic Group | Unknown | + + + Author + + + | Author | Maria Del Carmen [employer] | + + + | Organization | [facility] | + + + | Address | Unknown | + + + | Phone | Unavailable | + + + Support + + +---------+ + | Name | Relationship | Address | Phone | + + +---------+ + | Joseline Sepulveda | ECON | Unknown | | + + +---------+ + Care Team Providers + +------+ + | Care Anthropology Instructor Name | Role | Phone | [...] | | [address] | [place] [facility] [place] | | | | | [place] | [address] | | | | | [address] | | | | | | [phone] | | | +--------+ + + + [...] [place] | | | | | | [address] | | | | | | | | +--------+---------+ + + + as of this encounter Visit Diagnoses Not on filein this encounter"
--- OUTSIDE RECORDS SUMMARY | ~2018-09-23 | XMS | Encounter Summary ---
Demographics + + + | Address | [address] [facility] [address] | | | [place] [address] | + + + | Home Phone | | + + + | Preferred Language | Unknown | + + + | Marital Status | | + + + | Restoration Affiliation | Unknown | + + + | Race | Unknown | + + + | Ethnic Group | Unknown | + + + Author + + + | Author | Maria Del Carmen [employer] | + + + | Organization | [facility] | + + + | Address | Unknown | + + + | Phone | Unavailable | + + + Support + + +---------+ + | Name | Relationship | Address | Phone | + + +---------+ + | Joseline Sepulveda | ECON | Unknown | | + + +---------+ + Care Team Providers + +------+ + | Care Dining Host Name | Role | Phone | + +------+ + | Dena Vasquez PA-C | PCP | | + +------+ + Reason for Visit + + + | Reason | Comments | + + + | Labs Only | | + + + Encounter Details +--------+ + + + + | Date | Type | Department | Care Team | Description | +--------+ + + + + | 07/16/ | Telephone | Jayne | Laina Lutz, | Labs Only | | 2019 | | [facility] | [address] | | | | | [address] | [place] | | | | | [place] | [id number] | | | | | [address] | | | | | | [phone] | | | +--------+ + + + [...] [place] | | | | | | [address] | | | | | | | | +--------+---------+ + + + as of this encounter Visit Diagnoses Not on filein this encounter"
--- OUTSIDE RECORDS SUMMARY | ~2018-09-23 | XMS | Clinical Summary ---
Demographics + + + | Address | [address] | | | [place] [address] | + + + | Home Phone | | + + + | Preferred Language | Unknown | + + + | Marital Status | Single | + + + | Zoroastrian Affiliation | NRP | + + + [...] Team Providers + +------+ + | Care Senior Commercial Loan Officer Name | Role | Phone | + +------+ + | Dena Vasquez | PP | Unavailable | + +------+ + Source Comments TORY is fully live on both [facility] Ambulatory and [facility] InPatient.[facility] Allergies + + + + + + [...] | | | | Activ | | [id number] | mouth two times | | | [...] | | | + +--------+ +--------+-------+---------+ | DISCHARGE SPECIALIST MEDICAID | DISCHARGE SPECIALIST | xxxxxxxx | Medica | | | [...] Self | [birth year] | Home: | [address] | | | al/Fam | | 1971 | [phone] | [address] [place] | | | [place] | | | [phone] | [phone] | + +--------+ +--------+ + +
--- OUTSIDE RECORDS SUMMARY | ~2018-09-23 | XMS | Clinical Summary ---
Demographics + + + | Address | [address] [facility] [address] | | | [place] [address] | + + + | Home Phone | | + + + | Preferred Language | Unknown | + + + | Marital Status | Single | + + + | Zoroastrian Affiliation | Unknown | + + + | Race | Unknown | + + + | Ethnic Group | Unknown | + + + Author + + + | Author | [facility] | | | and [place] | + + + | Organization | [facility] | | | and [...] Providers + +------+ + | Care Manager Pool Name | Role | Phone | + [...] | 03/10 | | Activ | | [id number] | by mouth once daily | | [...] | [employer] | [employer] | [id number] | Medica | [phone] | | [...] Self | [birth year] | Home: | [address] | | | al/Fam | | 1971 | [phone] | [address] [place] | | | [place] | | | [phone] | [address] | + +--------+ +--------+ + +
--- OUTSIDE RECORDS SUMMARY | ~2018-09-23 | XMS | Encounter Summary ---
Demographics + + + | Address | [address] [facility] [address] | | | [place] [address] | + + + | Home Phone | | + + + | Preferred Language | Unknown | + + + | Marital Status | | + + + | Oriental Orthodox Affiliation | Unknown | + + + | Race | Unknown | + + + | Ethnic Group | Unknown | + + + Author + + + | Author | Maria Del Carmen [employer] | + + + | Organization | [facility] | + + + | Address | Unknown | + + + | Phone | Unavailable | + + + Support + + +---------+ + | Name | Relationship | Address | Phone | + + +---------+ + | Joseline Sepulveda | ECON | Unknown | | + + +---------+ + Care Team Providers + +------+ + | Care Hostess Name | Role | Phone | + [...] | | | | [place] | [address] | | | | | [address] | | | | | | [phone] | | | +--------+ + + + [...] [place] | | | | | | [address] | | | | | | | | +--------+---------+ + + + as of this encounter Visit Diagnoses Not on filein this encounter"
[~2018-09-23 18:41] MED LIST changes: +NUVARING VAGIN1 EACH VAGINAL; +VALIUM5 MG PO
--- OUTSIDE RECORDS SUMMARY | 2018-09-23 18:44 | XMS ---
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 E.DRosie VISIT COUNT (12 MO.) 2 CEFER[facility] [place] TOTAL 2 NOTE: Visits indicate total known visits. ED/UCC VISIT TRACKING (12 MO.) 09/23/2018 18:42 [facility] [place] TYPE: Emergency COMPLAINT: - HEADACHE 12/22/2017 14:25 [facility] [place] TYPE: Emergency COMPLAINT: - SOB/HEAD PAIN/STOMACH PAIN/CHEST PAIN DIAGNOSES: - Allergy status to other drugs, medicaments and biological substances status - Other usp (current) drug therapy - Gastro-esophageal reflux disease without esophagitis - Major depressive disorder, single episode, unspecified - Pleurisy - Anxiety disorder, unspecified - Viral infection, unspecified - Chest pain on breathing - Allergy status to sulfonamides status INPATIENT VISIT TRACKING (12 MO.) No inpatient visits to display in this time frame [email or web address]
[2018-09-23] MEDS ORDERED: FLUCONAZOLE150 MG PO (18:52)
[2018-09-23] MEDS ORDERED: AUGMENTIN 875-1 EACH PO (20:12)
[2018-09-23] MEDS ORDERED: TRAMADOL HCL50 MG PO (20:12)
== END 2018-09-23 20:27 | disposition home or self-care (01) ==
LOC: ED 18:41
DX: J01.90 Acute sinusitis, unspecified (principal); K21.9 Gastro-esophageal reflux disease without esophagitis; F32.9 Major depressive disorder, single episode, unspecified; F41.9 Anxiety disorder, unspecified; Z87.891 Personal history of nicotine dependence; Z88.2 Allergy status to sulfonamides; Z88.8 Allergy status to other drugs, medicaments and biological substances; Z79.899 Other long term (current) drug therapy
CPT/HCPCS: 96374; 96375; 99283-25; J1200; J1885; J2765; J7030

== ENCOUNTER 2020-04-18 08:42 | Emergency (ER) | payer OTHER ==
[~2020-04-18] VITALS: Ht 175.3 cm; Wt 90.7 kg
[~2020-04-18 08:42] MED LIST changes: +AUGMENTIN 875-1 EACH PO; +FLUCONAZOLE150 MG PO; +TRAMADOL HCL50 MG PO
--- OUTSIDE RECORDS SUMMARY | 2020-04-18 08:44 | XMS ---
Flora Notification: THOMAS Security Hardware Designer Events No recent Security Events currently on file CRITERIA MET - [facility] CARE PROVIDERS RICHARD SAMAYOA Physician Felt Coverer 09/24/2018-Current PHONE: Unknown Leo has no Care Guidelines for this patient. EPeter VISIT COUNT (12 MO.) 1 [facility] [place] TOTAL 1 NOTE: Visits indicate total known visits. ED/UCC VISIT TRACKING (12 MO.) 04/18/2020 08:43 [facility] [place] TYPE: Emergency COMPLAINT: - RAPID HEART RATE, CHEST PAIN INPATIENT VISIT TRACKING (12 MO.) No inpatient visits to display in this time frame [email or web address]
[2020-04-18] MEDS ORDERED: VITAMIN D21250 MCG PO (09:01)
[2020-04-18] MEDS ORDERED: METHOCARBAMOL500 MG PO (09:02)
[2020-04-18] MEDS ORDERED: CEVIMELINE HCL30 MG PO (09:03)
--- NOTE | 2020-04-19 11:28 | EKG ---
[facility] [address] [facility] [place], [place] [address] Signed Normal sinus rhythm Normal ECG When compared with ECG of 22-DEC-2017 14:37, No significant change was found Confirmed by MARIE DALE MD ([id number]) on 04/19/2020 11:27:50 AM Electronically Signed By: MARIE DALE MD 04/19/20 1128 PATIENT NAME: YOAN GUZMAN Electrocardiogram DATE OF : 70 PHYSICIAN: MARIE DALE MD REPORT #: [id number] REPORT IS CONFIDENTIAL AND NOT TO BE RELEASED WITHOUT AUTHORIZATION
== END 2020-04-18 10:55 | disposition home or self-care (01) ==
LOC: ED 08:42
DX: R07.89 Other chest pain (principal); K21.9 Gastro-esophageal reflux disease without esophagitis; F32.9 Major depressive disorder, single episode, unspecified; Z87.891 Personal history of nicotine dependence; Z88.8 Allergy status to other drugs, medicaments and biological substances; Z88.2 Allergy status to sulfonamides; Z79.899 Other long term (current) drug therapy
CPT/HCPCS: 71046; 80053; 84484; 85025; 85379; 93005; 93010; 99285-25

== ENCOUNTER 2020-06-09 12:40 | Emergency (ER) | payer OTHER ==
[~2020-06-09] VITALS: Ht 175.3 cm; Wt 77.6 kg
[~2020-06-09 12:40] MED LIST changes: +CEVIMELINE HCL30 MG PO; +METHOCARBAMOL500 MG PO; +VITAMIN D21250 MCG PO
[2020-06-09] MEDS ORDERED: PRISTIQ ER25 MG PO (13:20)
[2020-06-09] MEDS ORDERED: TRILEPTAL600 MG PO (13:20)
== END 2020-06-09 14:30 | disposition home or self-care (01) ==
LOC: ED 12:40
DX: S31.821A Laceration without foreign body of left buttock, initial encounter (principal); G40.909 Epilepsy, unspecified, not intractable, without status epilepticus; K21.9 Gastro-esophageal reflux disease without esophagitis; F32.9 Major depressive disorder, single episode, unspecified; F41.9 Anxiety disorder, unspecified; Z87.891 Personal history of nicotine dependence; Z88.2 Allergy status to sulfonamides; Z88.8 Allergy status to other drugs, medicaments and biological substances; Z79.899 Other long term (current) drug therapy; W22.8XXA Striking against or struck by other objects, initial encounter
CPT/HCPCS: 12002; 72170; 90471; 90714; 99283-25

== ENCOUNTER 2020-06-16 15:06 | Emergency (ER) | payer OTHER ==
[~2020-06-16] VITALS: Ht 175.3 cm; Wt 77.6 kg
[~2020-06-16 15:06] MED LIST changes: +PRISTIQ ER25 MG PO; +TRILEPTAL600 MG PO
--- OUTSIDE RECORDS SUMMARY | 2020-06-16 15:10 | XMS ---
PreManage Notification: THOMAS Security Money Room Supervisor Events No recent Security Events currently on file CRITERIA MET - [facility] - 2 Visits in 30 Days CARE PROVIDERS RICHARD SAMAYOA Physician Decorating Supervisor 09/24/2018-Current PHONE: Unknown Leo has no Care Guidelines for this patient. EPeter VISIT COUNT (12 MO[address] 3 [facility] TOTAL 3 NOTE: Visits indicate total known visits. ED/UCC VISIT TRACKING (12 MO.) 06/16/2020 15:07 [facility] [place] TYPE: Emergency COMPLAINT: - POSSIBLE INFECTION 06/09/2020 12:41 [facility] [place] TYPE: Emergency COMPLAINT: - LACERATION ON BUTTOCKS DIAGNOSES: - Personal history of nicotine dependence - Other manager terminal (current) drug therapy - Allergy status to other drugs, medicaments and biological substances - Gastro-esophageal reflux disease without esophagitis - Major depressive disorder, single episode, unspecified - Epilepsy, unspecified, not intractable, without status epilepticus - Laceration without foreign body of left buttock, initial encounter - Striking against or struck by other objects, initial encounter - Allergy status to sulfonamides - Anxiety disorder, unspecified 04/18/2020 08:43 [facility] [place] TYPE: Emergency COMPLAINT: - RAPID HEART RATE, CHEST PAIN DIAGNOSES: - Allergy status to sulfonamides - Other chest pain - Major depressive disorder, single episode, unspecified - Allergy status to other drugs, medicaments and biological substances - Other manager terminal (current) drug therapy - Gastro-esophageal reflux disease without esophagitis - Personal history of nicotine dependence - Chest pain, unspecified INPATIENT VISIT TRACKING (12 MO.) No inpatient visits to display in this time frame [email or web address]
[2020-06-17] MEDS ORDERED: DOXYCYCLINE MO100 M1 PO (13:13)
[2020-06-17] MEDS ORDERED: DICLOFENAC SODI75 MG PO (13:55)
[2020-06-17] MEDS ORDERED: ELURYNG VAGINA1 EACH VAGINAL (13:59)
[2020-06-17] MEDS ORDERED: NORCO 5-325 TA1 EACH PO (18:23)
== END 2020-06-16 19:22 | disposition home or self-care (01) ==
LOC: ED 15:06
DX: Z48.817 Encounter for surgical aftercare following surgery on the skin and subcutaneous tissue (principal); L08.9 Local infection of the skin and subcutaneous tissue, unspecified; G40.909 Epilepsy, unspecified, not intractable, without status epilepticus; K21.9 Gastro-esophageal reflux disease without esophagitis; Z87.891 Personal history of nicotine dependence; Z88.1 Allergy status to other antibiotic agents; Z88.2 Allergy status to sulfonamides; Z79.899 Other long term (current) drug therapy
CPT/HCPCS: 36415; 80053; 83605; 85025; 99283

== ENCOUNTER 2020-06-17 11:59 | Emergency (ER) | payer OTHER ==
[~2020-06-17] VITALS: Ht 175.3 cm; Wt 78.0 kg
--- OUTSIDE RECORDS SUMMARY | 2020-06-17 12:02 | XMS ---
PreManage Notification: THOMAS Security Beverage Host Events No recent Security Events currently on file [facility] CARE PROVIDERS RICHARD SAMAYOA Physician Scaler 09/24/2018-Current PHONE: Unknown Leo has no Care Guidelines for this patient. Marcia VISIT COUNT (12 MO.) 4 [facility] TOTAL 4 NOTE: Visits indicate total known visits. ED/UCC VISIT TRACKING (12 MO.) 06/17/2020 12:00 [facility] TYPE: Emergency COMPLAINT: - ABD PAIN 06/16/2020 15:07 [facility] TYPE: Emergency COMPLAINT: - POSSIBLE INFECTION 06/09/2020 12:41 [facility] TYPE: Emergency COMPLAINT: - LACERATION ON BUTTOCKS DIAGNOSES: - Personal history of nicotine dependence - Other emt intermediate (current) drug therapy - Allergy status to [...] sulfonamides - Anxiety disorder, unspecified 04/18/2020 08:[address] [facility] OR TYPE: Emergency COMPLAINT: - RAPID HEART RATE, CHEST PAIN DIAGNOSES: - Allergy status to sulfonamides - Other chest pain - Major depressive disorder, single episode, unspecified - Allergy status to other drugs, medicaments and biological substances - Other senior care (current) drug therapy - Gastro-esophageal reflux disease without esophagitis - Personal history of nicotine dependence - Chest pain, unspecified INPATIENT VISIT TRACKING (12 MO.) No inpatient visits to display in this time frame [email or web address]
[2020-06-17] MEDS ORDERED: DOXYCYCLINE MO100 M1 PO (13:13)
[2020-06-17] MEDS ORDERED: DICLOFENAC SODI75 MG PO (13:55)
[2020-06-17] MEDS ORDERED: ELURYNG VAGINA1 EACH VAGINAL (13:59)
[2020-06-17] MEDS ORDERED: NORCO 5-325 TA1 EACH PO (18:23)
== END 2020-06-17 18:45 | disposition home or self-care (01) ==
LOC: ED 11:59
DX: R10.32 Left lower quadrant pain (principal); L02.31 Cutaneous abscess of buttock; G40.909 Epilepsy, unspecified, not intractable, without status epilepticus; K21.9 Gastro-esophageal reflux disease without esophagitis; Z87.891 Personal history of nicotine dependence; Z88.2 Allergy status to sulfonamides; Z88.1 Allergy status to other antibiotic agents; Z79.899 Other long term (current) drug therapy
CPT/HCPCS: 74177; 76830; 76856; 80053; 81001; 83690; 84703; 85025; 87491; 87591; 96374; 96375; 96376; 99284-25; J1170; J2405; J7030; Q9967

== ENCOUNTER 2020-06-19 09:10 | Day surgery (SDC) | payer OTHER ==
[~2020-06-19] VITALS: Ht 177.8 cm; Wt 75.5 kg
[~2020-06-19 09:10] MED LIST changes: +DICLOFENAC SODI75 MG PO; +DOXYCYCLINE MO100 M1 PO; +ELURYNG VAGINA1 EACH VAGINAL
[2020-06-19] MEDS ORDERED: NORCO 10-325 T1 EACH PO (14:46)
--- NOTE | 2020-06-19 17:42 | OR ---
[facility] [address] [place], [place] [address] Signed DATE OF OPERATION: 06/19/2020 SURGEON: Edmond Canela MD PREOPERATIVE DIAGNOSIS: Open right gluteal abscess/wound. POSTOPERATIVE DIAGNOSIS: Open right gluteal abscess/wound. PROCEDURE: Sharp debridement of right gluteal wound. ESTIMATED BLOOD LOSS: None. FINDINGS: Pam's wound is approximately 2.5 to 3 cm wide x 6 cm in length just underneath the skin traveling transversely. INDICATIONS: Pam is a 49-year-old female, [place]. She came off backwards from the truck and landed on some gunnar metal. It went right through her clothes into her right gluteal area. She had been in the emergency room for evaluation. It was cleansed and closed with interrupted nylon sutures. Initially, she was given Cipro. Unfortunately, it became infected and she had come back to the emergency room. The sutures were removed and it was washed out and she was asked to see me as a general surgeon in on-call in my office. In the office, she had an area of surrounding erythema probably 10 or 12 cm, it was quite malodorous, and I could see slimy necrotic tissue on one side, but some granulation tissue on the other. She has had x-rays in that area and there was no obvious foreign body. I explained to Pam, I thought it was suazo we take her to the operating room to fully explore that wound and cleaned it out completely. We are going to ask her to use Dakin's solution to pack the wound for four days and then on the fifth day she will switch to normal saline packing. Her Cipro was changed over to doxycycline by the ER physician, we will ask her to finish that as well. She understands by secondary intention and it will take several weeks. She said her mom is really not able to help, but I think the wound is wide enough and shallow enough that she is able to do this herself with a Q-tip or even her index finger. I reviewed that with her in the office and she felt that she could do this on her own. We did offer her to come to our day surgery area twice a day for the Electronically Signed By: EDMOND CANELA MD 06/19/20 1742 PATIENT NAME: PAM GUZMAN OPERATIVE REPORT DATE OF : 70 REPORT #: [id number] PHYSICIAN: EDMOND CANELA MD PCP: DENA SAMAYOA REPORT IS CONFIDENTIAL AND NOT TO BE RELEASED WITHOUT AUTHORIZATION [facility] [address] [place], [place] [address] Signed nurses to help her, but she does not drive her mom, really should not be driving at her age and her vision. Consequently, she wants to try this at home. She had expressed understanding and wished to proceed. DESCRIPTION OF PROCEDURE: I met with Pam once again in the preop area. After confirming the right gluteal wound, she was taken into the operating room and placed in a prone zach-knife position under general endotracheal tube anesthesia. She was given preoperative antibiotics along with subcutaneous heparin. SCDs were utilized. She was then prepped and draped in the usual sterile fashion. We sharply debrided the edges of the wound and then explored the wound laterally about 6 cm directly underneath the skin. She has some granulation tissue out of the mouth of the wound, but deeper and it is healthy adipose tissue. No evidence of any residual hematoma or loculations and so forth. We injected local anesthetic in and around the wound. The wound was then packed with full strength Dakin's solution soaked gauze. This was covered with a dry ABD and underwear. Pam was then rotated into the supine position onto her hospital bed, weaned from her anesthesia, extubated in the OR, and taken to the recovery room in stable condition. Edmond Canela MD ALB/MODL /[id number] cc: MD Dena Owen PA Copies: EDMOND CANELA MD, LINDA PA ~ Electronically Signed By: EDMOND CANELA MD 06/19/20 1742 PATIENT NAME: PAM GUZMAN OPERATIVE REPORT DATE OF : 70 REPORT #: [id number] PHYSICIAN: EDMOND CANELA MD PCP: DENA SAMAYOA REPORT IS CONFIDENTIAL AND NOT TO BE RELEASED WITHOUT AUTHORIZATION
== END 2020-06-19 15:55 | disposition home or self-care (01) ==
LOC: DS 09:10
PROVIDERS: ATTEND Colon & Rectal Surgery
PROC: 0JB90ZZ Excision of Buttock Subcutaneous Tissue and Fascia, Open Approach (ICD-10-PCS; principal; 2020-06-19 11:30)
DX: L02.31 Cutaneous abscess of buttock (principal); G43.909 Migraine, unspecified, not intractable, without status migrainosus; M19.90 Unspecified osteoarthritis, unspecified site; J30.2 Other seasonal allergic rhinitis; K21.9 Gastro-esophageal reflux disease without esophagitis; F31.9 Bipolar disorder, unspecified; F41.9 Anxiety disorder, unspecified; G47.00 Insomnia, unspecified; F17.210 Nicotine dependence, cigarettes, uncomplicated; Z79.899 Other long term (current) drug therapy; Z97.5 Presence of (intrauterine) contraceptive device; Z79.1 Long term (current) use of non-steroidal anti-inflammatories (NSAID); Z88.2 Allergy status to sulfonamides; Z88.8 Allergy status to other drugs, medicaments and biological substances; Z20.828 Contact with and (suspected) exposure to other viral communicable diseases; Z01.812 Encounter for preprocedural laboratory examination
CPT/HCPCS: 00902; C9803; J1100; J1644; J1885; J2250; J2405; J2704; J2765; J3010; J7121; U0003

== ENCOUNTER 2020-08-05 21:25 | Emergency (ER) | payer OTHER ==
[~2020-08-05] VITALS: Ht 177.8 cm; Wt 75.7 kg
[~2020-08-05 21:25] MED LIST changes: +NORCO 10-325 T1 EACH PO
--- OUTSIDE RECORDS SUMMARY | 2020-08-05 23:34 | XMS ---
Gregoryge Notification: THOMAS Security Building Equipment Operator Events No recent Security Events currently on file CRITERIA MET - PDMP CARE PROVIDERS RICHARD SAMAYOA Physician Delivery Truck Driver Heavy 09/24/2018-Current PHONE: Unknown Leo has no Care Guidelines for this patient. Marcia VISIT COUNT (12 MO.) 5 [facility] TOTAL 5 NOTE: Visits indicate total known visits. ED/UCC VISIT TRACKING (12 MO.) 08/05/2020 21:26 [facility] TYPE: Emergency COMPLAINT: - HEAD PAIN,CHEST PAIN 06/17/2020 12:00 [facility] TYPE: Emergency COMPLAINT: - ABD PAIN DIAGNOSES: - Allergy status to other antibiotic agents - Left lower quadrant pain - Personal history of nicotine dependence - Allergy status to other antibiotic agents - Allergy status to sulfonamides - Allergy status to sulfonamides - Unspecified abdominal pain - Gastro-esophageal reflux disease without esophagitis - Epilepsy, unspecified, not intractable, without status epilepticus - Other custodial (current) drug therapy - Left lower quadrant pain - Cutaneous abscess of buttock 06/16/2020 15:07 [facility] TYPE: Emergency COMPLAINT: - POSSIBLE INFECTION DIAGNOSES: - Personal history of nicotine dependence - Other custodial (current) drug therapy - Allergy status to other antibiotic agents - Epilepsy, unspecified, not intractable, without status epilepticus - Encounter for surgical aftercare following surgery on the skin and subcutaneous tissue - Gastro-esophageal reflux disease without esophagitis - Local infection of the skin and subcutaneous tissue, unspecified - Puncture wound without foreign body of right buttock, subsequent encounter - Allergy status to other antibiotic agents - Allergy status to sulfonamides - Allergy status to sulfonamides 06/09/2020 12:41 [facility] TYPE: Emergency COMPLAINT: - LACERATION ON BUTTOCKS DIAGNOSES: - Personal history of nicotine dependence - Other assistant terminal manager (current) drug therapy - Allergy status to [...] drugs, medicaments and biological substances - Other custodial (current) drug therapy - Gastro-esophageal reflux disease without esophagitis - Personal history of nicotine dependence - Chest pain, unspecified INPATIENT VISIT TRACKING (12 MO.) No inpatient visits to display in this time frame [email or web address]
--- NOTE | 2020-08-06 15:26 | EKG ---
[facility] [address] [facility] [place], [place] [address] Signed Sinus rhythm with frequent premature ventricular complexes Otherwise normal ECG No previous ECGs available Confirmed by ANKIT CALLOWAY DO ([id number]) on 08/06/2020 3:26:40 PM Electronically Signed By: ANKIT CALLOWAY DO 08/06/20 1526 PATIENT NAME: YOAN GUZMAN Electrocardiogram DATE OF : 70 PHYSICIAN: ANKIT CALLOWAY DO REPORT #: [id number] REPORT IS CONFIDENTIAL AND NOT TO BE RELEASED WITHOUT AUTHORIZATION
== END 2020-08-06 02:20 | disposition home or self-care (01) ==
LOC: ED 21:25
DX: I49.3 Ventricular premature depolarization (principal); R51.9 Headache, unspecified; R07.89 Other chest pain; G40.909 Epilepsy, unspecified, not intractable, without status epilepticus; K21.9 Gastro-esophageal reflux disease without esophagitis; Z87.891 Personal history of nicotine dependence; Z88.2 Allergy status to sulfonamides; Z88.1 Allergy status to other antibiotic agents; Z79.899 Other long term (current) drug therapy
CPT/HCPCS: 71046; 80053; 83735; 84484; 85025; 85610; 85730; 93005; 93010; 96374; 99285-25; J1885

== ENCOUNTER 2020-12-27 08:47 | Inpatient (IN) | payer OTHER ==
[~2020-12-27] VITALS: Ht 177.8 cm; Wt 78.0 kg
--- OUTSIDE RECORDS SUMMARY | 2020-12-27 08:50 | XMS ---
PreManage Notification: THOMAS Security Neurophysiological Technician Events No recent Security Events currently on file CRITERIA MET - SNEHAP CARE PROVIDERS RICHARD SAMAYOA Physician Rn Hemo Dialysis 09/24/2018-Current PHONE: Unknown Leo has no Care Guidelines for this patient. Care History Medical/Surgical 08/10/2020 [facility] - PATIENT FOLLOW UP APT WITH PCP RICHARD SAMAOYA AT DR DUQUE OFFICE 2020. Marcia VISIT COUNT (12 MO.) 6 [facility] TOTAL 6 NOTE: Visits indicate total known visits. ED/UCC VISIT TRACKING (12 MO.) 12/27/2020 08:47 [facility] TYPE: Emergency COMPLAINT: - ANIMAL BITE 08/05/2020 21:26 [facility] TYPE: Emergency COMPLAINT: - HEAD PAIN,CHEST PAIN DIAGNOSES: - Headache, unspecified - Ventricular premature depolarization - Other chest pain - Allergy status to sulfonamides - Gastro-esophageal reflux disease without esophagitis - Other residential (current) drug therapy - Epilepsy, unspecified, not intractable, without status epilepticus - Personal history of nicotine dependence - Allergy status to other antibiotic agents 06/17/2020 12:00 [facility] TYPE: Emergency [...] not intractable, without status epilepticus - Other rat exterminator (current) drug therapy - Left lower quadrant pain - Cutaneous abscess of buttock 06/16/2020 15:07 [facility] TYPE: Emergency COMPLAINT: - POSSIBLE INFECTION DIAGNOSES: - Personal history of nicotine dependence - Other residential (current) drug therapy - Allergy status to [...] Personal history of nicotine dependence - Other rat exterminator (current) drug therapy - Allergy status to sulfonamides - Allergy status to other drugs, medicaments and biological substances - Allergy status to other drugs, medicaments [...] other drugs, medicaments and biological substances - Allergy status to sulfonamides - Allergy status to other drugs, medicaments and biological substances - Other residential (current) drug therapy - Gastro-esophageal reflux disease without esophagitis - Personal history of nicotine dependence - Chest pain, unspecified INPATIENT VISIT TRACKING (12 MO.) No inpatient visits to display in this time frame [email or web address]
--- NOTE | 2020-12-27 12:25 | NUR ---
PTS MOTHER, KANU, TO INPATIENT ROOM. PTS MOTHER STATES PT HAS BEEN DEPENDANT ON COLONAZAPAM FOR "OVER 30 YEARS" AND THAT PT WILL BE VERY ANXIOUS WHEN SHE ARRIVES FROM PACU ABOUT RECEIVING ALL OF HER MEDICATIONS. KANU STATES MEDICATIONS CAME WITH PT FROM HOME IN AMBULANCE. Kanu ALSO STATES PT IS A "MORE THAN A PACK A DAY" SMOKER AND SHE WILL NEED A NICOTENE PATCH. 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 KANU UPDATED ON PT CONDITION. COFFEE PROVIDED TO KANU. AWAITING PTS ARRIVAL TO UNIT.
--- NOTE | 2020-12-27 12:38 | NUR ---
12/27/20 1238 Sindhu Porter 1234-PATIENT ARRIVED TO PACU ON 10L MASK NONAROUSABLE RR EVEN. PLACED ON 6L. IVF INFUSING. SR. DRESSINGS TO RIGHT HAND BUTTOCKS AND RIGHT LEG. DRAINAGE ON RIGHT THIGH DRESSING. RIGHT CALF HAS DEE WRAP.
--- NOTE | 2020-12-27 12:49 | NUR ---
DR. CLEMENS CALLED AND UPDATED REGARDING CLONAZAPAM AND NICOTENE DEPENDANCE AND OTHER CONDITIONS REPORTED BY MOTHER. PTS MOTHER UPDATED ON PT CONDITION AND ARRIVAL TO PACU.
[2020-12-27] MEDS ORDERED: CETIRIZINE HCL10 MG PO (13:07)
[2020-12-27] MEDS ORDERED: DICLOFENAC SODI75 MG PO (13:08)
--- NOTE | 2020-12-27 13:22 | NUR ---
PHARMACIST NEFTALI CALLED REGARDING DR. CLEMENS'S NURSE NOTIFY WITH MEDICATION ORDERS. ORDERS TUBED TO NEFTALI WHO STATES HE WILL ENTER ORDERS.
[2020-12-27] MEDS ORDERED: HYDROXYZINE PAM25 MG PO (13:27)
[2020-12-27] MEDS ORDERED: BUSPIRONE HCL30 MG PO (13:33)
[2020-12-27] MEDS ORDERED: DESVENLAFAXINE100 M3 PO (13:34)
--- NOTE | 2020-12-27 13:40 | NUR ---
PT ARRIVED FROM PACU. REPORT RECEIVED FROM MIMA MORRISON. PT TRANSFERED TO BED WITH 4 PERSON ASSIST. VITALS SIGNS STABLE. COMPLETE WOUND ASSESSMENT DONE, SEE INITIAL WOUND ASSESSMENT NOTE. HEART TONES REGULAR. O2 SATURATIONS ABOVE 94% ON ROOM AIR. CONTINIOUS PULSE OX IN PLACE PER PROTOCOL. SCD PLACED TO LEFT LOWER EXTREMITIY, DRESSING REMAINS IN PLACE ON RIGHT LOWER EXTREMITY. IV FLUIDS STARTED THROUGH LEFT HAND IV. RIGHT AC IV LEAKING, DC'D PER PROTOCOL, GAUZE AND COBAN IN PLACE. PT REPORTS 8/10 PAIN IN RIGHT LOWER EXTREMITY, NO PAIN IN RIGHT UPPER THIGH OR GLUTEAL AREA AND 7/10 PAIN IN RIGHT HAND. SEE MAR FOR MEDICATION GIVEN. CMS INTACT TO RIGHT LOWER EXTREMITY, PT DENIES NUMBNESS AND TINGLING. PULSE FAINT BUT NOTED. PLANTAR AND DORSI FLEXION NOTED IN BLE, WEAKER ON RIGHT SIDE. STRONG CARDIAC/VASCULAR SONOGRAPHER NOTED IN BILATERAL HANDS. PT TOLERATING SIPS OF WATER. RIGHT LEG ELEVATED ON PILLOW. NO ADDITIONAL REQUESTS OR COMPLAINTS. CALL LIGHT WITHIN REACH. BED RAILS UP.
--- NOTE | 2020-12-27 13:49 | NUR ---
INITIAL WOUND ASSESSMENT: RIGHT HAND: GAUZE AND FLEXICON IN PLACE 5% SHADOWING NOTED TO THE PROXIMAL LATERAL DRESSING RIGHT INDEX FINGER: [address]AB IN [address] RIGHT LAT. SIDE: ДМИТРИЙ. 5CM X 4CM RIGHT GLUTEAL WOUND: ABD AND SILK DRESSING IN PLACE, 2 AREAS SANGUINOUS SHADOWING, ONE IS 8CM CIRCUMFERENTIAL, 2ND IS 5.5 CM CIRCUMFERENTIAL LEFT GLUTEAL WOUND: ABD AND SILK TAPE 9.5 CM CIRCUMFERENTIAL SANGUINOUS SHADOWING SACCRAL DRESSING: ABD AND SILK TAPE, 7CM X 5CM SANGUINOUS SHADOWING NOTED RIGHT LATERAL THIGH: GAUZE AND SILK TAPE, SANGUINOUS SHADOWING NOTED THROUGH 60% OF DRESSING RIGHT CALF: COVERED BY DEE WRAP, NO DRAINAGE NOTED RIGHT LATERAL FOOT: 1CM CIRCUMFERENTIAL ABRASION, SCANT AMOUNT RED DRAINAGE NONADHESIVE DRESSING APPLIED RIGHT INNER THIGH: BRUISE NOTED WITH SCRATCH SALLIE ABRASIONS, MEASURES 13CM X 12CM LEFT MEDIAL THIGH: BRUISE NOTED WITH MULT. SCRATCH MUNOZ, MEASURES 10CM X 6CM STERNAL AREA: BRUISE 6CM X 1CM
[2020-12-27] MEDS ORDERED: PSEUDOEPHEDRIN120 MG PO (14:06)
[2020-12-27] MEDS ORDERED: IBU-200200 MG PO (14:09)
--- NOTE | 2020-12-27 14:45 | NUR ---
VITALS AND ASSESSMENT DUE. THIS RN TO ROOM. PT REQUESTS ASSISTANCE UP TO RESTROOM. 1 PERSON ASSIST PIVOT UP TO BEDSIDE COMODE. PT REPORTS SHE IS UNABLE TO BEAR WEIGHT DUE TO PAIN ON RIGHT LEG. PT REPORTS 8/10 PAIN IN RIGHT LEG. SEE MAR FOR MEDICATION GIVEN. PT VOIDS 500ML CLEAR YELLOW URINE WITHOUT ISSUE. DRESSINGS ASSESSED. DRESSING OVER COCCYX AREA AND RIGHT UPPER TIGH NOW SATURATED. MD CONSULTED AND STATES TO CHANGE DRESSINGS WITH ABD PAD AND SILK TAPE PRN. DRESSINGS CHANGED, NEW ABD PAD AND SILK TAPE IN PLACE. DRESSINGS TO RIGHT AND LEFT GLUTEAL AREAS, RIGHT HAND, RIGHT CALF AND RIGHT FOOT UNCHANGED. PT BACK TO BED WITH STAND BY ASSIST/PIVOT. O2 SATURATIONS REMAIN ABOVE 94% ON ROOM AIR. PT PLACES DINNER AND BREAKFAST ORDERS. NO ADDITIONAL REQUESTS OR COMPLAINTS AT THIS TIME. CALL LIGHT WITHIN REACH. BED RAILS UP.
[2020-12-27] MEDS ORDERED: FLONASE ALLERG9.9 ML NAS (15:35)
--- NOTE | 2020-12-27 15:35 | NUR ---
MED REC COMPLETE
--- NOTE | 2020-12-27 15:45 | NUR ---
VITALS AND ASSESSMENT DUE. PT REQUESTS ASSISTANCE UP TO BEDSIDE COMODE. 1 PERSON ASSIST PIVOT UP TO BEDSIDE COMODE. PT VOIDS WITHOUT ISSUE. PT PERFORMS SELF ADRIANNA CARE. 1 PERSON ASSIST PIVOT BACK TO BED. DRESSING TO SACRAL AREA AND RIGHT GROIN SATURATED WITH SANGUINOUS DRAIANGE. CHANGED PER MD ORDER. NEW ABD PAD AND SILK TAPE IN PLACE. CHUX CHANGED RELATED TO DRAINAGE. SMALL AMOUNT OF ADDITIONAL DRAINAGE NOTED TO LEFT LOWER CALF DRESSING, DRESSING NOW 10% SATURATED. OTHER DRESSINGS UNCHANGED. PT TOERATES DRESSING CHANGE WITH PAIN AT 02/16. SEE MAR FOR ADDITIONAL PAIN MEDICAITON GIVEN. VITAL SIGNS STABLE. FAMILY AT BEDSIDE. THIS RN AT BEDSIDE FOR INTAKE ASSESSMENT. CRACKERS AND 7-UP PROVIDED. PT TOELRATING PO INTAKE WITHOUT NAUSEA. NO ADDTIIONAL REQUESTS OR COMPLAINTS. CALL LIGHT WITHIN REACH. BED RAILSUP. FAMILY AT BEDSIDE.
--- NOTE | 2020-12-27 16:48 | NUR ---
VITALS AND ASSESSMENT DUE. THIS RN TO ROOM. VITAL SIGNS STABLE. PT TEARFUL AND CRYING. TELLING HER MOM "SHE IS SO SORRY." PTS MOTHER CONSOLING PT. PT REPORTS PAIN IS IMPROVING NOW 12/17. PT AGREES TO A DOSE OF KEYTORALAC. PTS MOTHER ENCOURAGES PT TO HAVE A DISTRACTION SUCH TV, TV TURNED ON AND PT CALMS. DRESSING TO RIGHT CLAF SHOWS 15% SATURATION WITH TWO CIRCLES OF SANGUINOUS DRAINAGE MEASURING [id number] AND [id number]. PLANTAR AND DORSI FLEXION CONTINUES UNCHANGED. STRONG OPERATIONS RESEARCH ANALYST NOTED, ALTHOUGH WEAKER ON RIGHT SIDE. PULSES NOTED IN BLE, WEAKER ON RIGHT SIDE. ALL OTHER DRESSINGS UNCHANGED AT THIS TIME. VITAL SIGNS STABLE. SCD' IN PLACE. PT DRIFTING OFF TO SLEEP. BED RAILSUP. CPOX REMAINS IN PLACE. CALL LIGHT WITHIN REACH. MOTHER AT BEDSIDE.
--- NOTE | 2020-12-27 17:16 | NUR ---
Mother calls staff for assist. Believes patient is either having seizure or reaction to pain medication. Upon entering room, patient alert and oriented, states she is just feeling very exhausted. Vital signs obtained, WNL. Voices multiple times she is just having a hard day and she is exhausted. Assist to commode. Informed she needs to rest. Assist back to bed.
--- NOTE | 2020-12-27 17:28 | NUR ---
PT ARRIVED FROM OR TODAY AFTER BRIEF STAY IN ER. PT ALERT AND ORIENTED. TOLERATING REGULAR DIET AND PO FLUIDS WITHOUT NAUSEA SO FAR THIS SHIFT. PT VOIDING QUANTITY SUFFICIENT, UP TO BEDSIDE COMODE WITH 1 PERSON ASSIST. PT PREFERES TO PIVOT UP TO COMODE RELATED TO PAIN IN RLE. MULTPLE WOUNDS NOTED OVER SKIN (SEE INTITIAL WOUND ASSESSMENT FOR LIST OF ALL WOUNDS). ABD AND GAZUE DRESSINGS TO GLUTEAL/SACRAL AREAS, AND UPPER RIGHT THIGH. TO BE CHANGED PRN, CHANGED X2 THIS SHIFT. DEE WRAP AND GAUZE DRESSING TO RIGHT LOWER LEG, MINIMAL SANGUINOUS DRAIANGE NOTED ON DEE WRAP. GAUZE DRESSING TO RIGHT HAND/WRIST. MINIMAL SANGUINOUS DRAINGE NOTED ON THIS DRESSING THIS SHIFT. BRUISES TO RIGHT SIDE/ABDOMEN. BURISES AND SCRATCH SALLIE ABRASIONS NOTED TO INNER THIGHS. SMALL ABRAISON TO RIGHT INDEX FINGER (OPEN TO AIR) AND LATERAL RIGHT FOOT (NON ADHEANT DRESSING IN PLACE). LUNG SOUNDS CLEAR. HEART TONES REGULAR. CPOX IN PLACE WITH O2 SATURATIONS ABOVE 92% ON ROOM AIR. PT AFEBRIAL THIS SHIFT. NO SEIZURE ACTIVITY NOTED SO FAR THIS SHIFT. PRN PAIN MEDICATIONS GIVEN FOR 6-9/10 PAIN IN RLE AND RIGHT SHOULDER. DORSI AND PLANTAR FLEXION NOTED IN BLE, WEAKER ON RIGHT SIDE. PT CONTINUES TO BE ABLE TO GEAR GENERATOR SET UP OPERATOR WITH BOTH RIGHT AND LEFT HANDS, WEAKER ON RIGHT SIDE. CMS INTACT. PT VERY TEARFUL AT TIMES, DISTRATION AND MEDICATIONS WITH GOOD EFFECT. PTS MOTHER AT BEDSIDE FOR MUCH OF SHIFT, HELPFUL AT TIMES BUT ALSO WAKING PT UP UNNESSISARILY. SEIZURE PRECAUTIONS IN PLACE. PT USES CALL LIGHT APPROPRIATLY AND MAKES NEEDS KNOWN.
--- NOTE | 2020-12-27 18:26 | NUR ---
FULL DRESSING CHANGE TO PTS GLUTEAL, SACRAL AND RIGHT UPPER THIGH WOUNDS DONE FOLLOWS: PT PRE MEDICATED WITH 2MG MORPHINE, REPORTS 6/10 PAIN PRIOR TO DRESSING CHANGE IN RIGHT LOWER LEG, 5/10 PAIN IN GLUTEAL/SACRAL AREA, AND 2/10 PAIN IN RIGHT SHOULDER. PT ASSISED WITH MOVING TO PRONE POSITON. CHEST AND RIGHT LOWER LEG SUPPORTED WITH PILLOWS. DRESSING REMOVED. INCISIONS NOTED FOLLOWS: 4.5 CM INCISION WITH SUTURES IN PLACE TO DISTAL RIGHT BUTTOCKS. EDGES WELL APROXIMATED. NO ERYTHEMA, DRAINAGE OR SWELLING NOTED. 3.5CM INCISION WITH SUTURES IN PLACE TO PROXIMAL RIGHT BUTTOCKS. EDGES WELL APROXIMATED. NO ERYTHEMA, DRAINAGE OR SWELLING NOTED. 2.0 CM INCISION WITH SUTURES IN PLACE TO MEDIAL LEFT BUTTOCKS. EDGES WELL APROXIMATED. NO ERYTHEMA, DRAINAGE OR SWELLING NOTED. 4.5 CM INCISION WITH PINROSE DRAIN IN PLACE TO PROXIMAL POSTERIOR RIGHT THIGH . EDGES WELL APROXIMATED. NO ERYTHEMA SWELLING NOTED. SMALL AMOUNT OF RED DRAINAGE NOTED. 7.0 CM INCISION WITH SUTURES AND DRAIN IN PLACE TO LATERAL RIGHT THIGH. EDGES WELL APROXIMATED. NO ERYTHEMA OR SWELLING NOTED. SMALL AMOUNT OF RED DRAINAGE NOTED. NEW ABD PADS AND SILK TAPE APPLIED TO ALL SITES. PICTURES TAKEN AND PLACED ON CHART. PT REPOSITIONED TO SUPINE POSITION FOR COMFORT. DRESSINGS REMAIN C/D/I. RIGHT LEG ELEVATED ON PILLOW. HEAD OF BED ELEVATED TO 30 DEGREES. PT STATES SHE WILL EAT DINNER "LATER." PT RPEORTS 5/10 PAIN IN RIGHT LOWER LEG, 3/10 PAIN IN GLUTEAL AREA AND 0/10 PAIN IN RIGHT SHOULDER AFTER DRESSING CHANGE. PT DENIES ADDITIONAL REQUESTS OR COMPLAINTS. CALL LIGHT WITHIN REACH. BED RAILS UP.
--- NOTE | 2020-12-27 19:10 | NUR ---
REPORT GIVEN TO MIMA KONG, WHO IS ASSUMING CARE OF PT. QUESTIONS ANSWERED.
--- NOTE | 2020-12-27 19:15 | NUR ---
2 pa MARGRET GROUNDS PERSON AND RN MAICO HELPED PATIENT USE THE BEDSIDE COMMODE.
--- NOTE | 2020-12-27 19:39 | NUR ---
REPORT RECEIVED FROM DAY SHIFT RN. PT LYING IN BED ALERT AND ORIENTED. DENIES NEEDS AT THIS TIME. WHITE BOARD UPDTED. MOM AT BEDSIDE. CALL LIGHT IN REACH.
--- NOTE | 2020-12-27 21:00 | NUR ---
CALL LIGHT ANSWERED. 1 PA TO BEDSIDE COMMODE AND BACK TO BED. THIS DISABILITY LIAISON OFFICER MADE BED FOR THE MOM WILL STAY OVERNIGHT.
--- NOTE | 2020-12-27 21:40 | NUR ---
EVENING ASSESSMENT COMPLETE. SCHEDULED MEDS ADMINISTERED PER EMAR. PRN FOR PAIN ADMINISTERED FOR 8/10 GENERALIZED PAIN. PT DENIES NAUSEA. CPOX AND SCD'S IN PLACE. DRESSING TO RLE INTACT WITH SCANT AMOUNT SHADOWING. DRESSING TO RIGHT HAND INTACT WITH SCANT AMOUNT SHADOWING. DRESSINGS TO RIGHT AND LEFT GLUTEAL AREA AND RIGHT THIGH INTACT WITH SCANT AMOUNT SHADOWING. UPPER AND LOWER EXTREMITY CMS INTACT. RIGHT SIDE WEAKNESS NOTED. FINE TREMORS NOTED IN RUE. IVF INFUSING ORDERED. PT DENIES QUESTIONS OR CONCERNS. PT AND MOM PROVIDED WITH FRESH WATER. MOM REMAINS IN ROOM. CALL LIGHT IN REACH.
--- NOTE | 2020-12-27 23:46 | NUR ---
PT RESTING IN BED WITH EYES CLOSED LAYING ON LEFT SIDE. RIGHT LEG ELEVATED. RESPIRATIONS EVEN. SpO2 97% ON RA. HR 80'S. MOM ON COUCH.
--- NOTE | 2020-12-28 00:42 | NUR ---
CALL LIGHT ANSWERED. ASSISTED PT TO REPOSITION RLE WITH PILLOWS. PT REPORTS SHE IS RESTING WELL. REQUESTS ROOM TO BE DARKER. COMPUTER SCREEN TURNED OFF. MOM ON COUCH. NO FURTHER NEEDS.
--- NOTE | 2020-12-28 01:45 | NUR ---
CALL LIGHT ANSWERED. PUMP ALARMING. NEW BAG IVF INFUSING. PRN ADMINISTERED FOR 8/10 RIGHT SIDE PAIN. PT UP TO BSC WITH 1PA TO VOID. BACK TO BED, DARREN WELL. DRESSINGS INTACT. RLE ELEVATED ON PILLOWS. VS AND I&O COMPLETE. BP NOTED TO BE LOW BUT WITHIN PARAMETERS AT THIS TIME. CMS INTACT IN RIGHT UPPER AND LOWER EXTREMITIES. NO FURTHER NEEDS AT THIS TIME. CALL LIGHT IN REACH.
--- NOTE | 2020-12-28 04:30 | NUR ---
PT RESTING IN BED WITH EYES CLOSED, NAD.
--- NOTE | 2020-12-28 06:28 | NUR ---
SCHEDULED PAIN MED AND IV ABX ADMINISTERED PER EMAR. VS AND I&O COMPLETE. BP NOTED TO BE BELOW PARAMETERS. MESSAGE LEFT FOR DR. CLEMENS. DRESSINGS TO RIGHT AND LEFT GLUTEAL AREA AND RIGHT LATERAL THIGH WITH MODERATE AMOUNT SEROSANG DRAINAGE. GAUZE AND TAPE CHANGED ORDERED. PT DARREN FAIR. EMOTIONAL AT TIMES. COMFORT AND ENCOURAGEMENT PROVIDED. DRESSING TO RLE INTACT WITH SCANT AMOUNT SHADOWING ON LATERAL SIDE. MOM AT BEDSIDE TO OBSERVE. FRESH COFFEE PROVIDED. PT DENIES FURTHER NEEDS AT THIS TIME. CALL LIGHT IN REACH.
--- NOTE | 2020-12-28 07:19 | NUR ---
CALL LIGHT ANASWERED. 1 PA TO BEDSIDE COMMODE. PATIENT VOIDED. NOTICED SOME FRESH BLOOD. RN NOTIFIED.
--- NOTE | 2020-12-28 07:35 | NUR ---
PT ALERT AND INTERACTIVE AT BEDSIDE REPORT. WOUND ACTIVELY BLEEDING NOC RN APPLIES NEW ABD PADS, USING PANTIES TO SECURE IN PLACE INSTEAD OF TAPE. PT REQUESTS TAPE ONLY NECC. PT DRINKING COFFEE MOTHER IS AT BEDSIDE. WHEN ASKED IF SHE IS COMFORTABLE PT REPLIES "I'M FINE"
--- NOTE | 2020-12-28 08:45 | NUR ---
INTO PATIENT ROOM, PATIENT AWAKE WATCHING TV. PATIENT MOTHER SARAH AT BEDSIDE. PATIENT STATES SHE LIVES IN AN APARTMENT ALONE AT THIS TIME. PATIENT STATES SHE HAS A STAIRWAY LEADING TO HER APARTMENT WITH NO HAND RAILS AND SHE IS CONCERNED ABOUT BEING ABLE TO BEAR WEIGHT ON HER R LEG AT THIS TIME. DISCUSSED WITH PATIENT THAT WE WILL SEE HOW SHE IS PROGRESSING OVER HER STAY AND IF SHE WILL NEED ANY DME. PATIENT MOTHER SARAH STATES THAT PATIENT APARTMENT WILL NEED TO BE CLEANED BEFORE PATIENT IS ABLE TO RETURN THE ATTACK TOOK PLACE THERE. I ADVISED PATIENT AND MOTHER THAT THERE IS NO DISCHARGE DATE AT THIS TIME, WE HAVE TIME TO SORT THESE DETAILS OUT. PATIENT AND MOTHER STATES THEY WILL START THINKING ABOUT HER DISCHARGE. I ADVISED THEM CASE MANAGEMENT STAFF WILL RETURN TO VISIT THEM DURING THEIR STAY.
--- NOTE | 2020-12-28 08:49 | NUR ---
PT SITTING UPRIGHT IN BED FINISHED WITH BREAKFAST. OTHER ITEMS OFFERED PT ONLY ATE 10% SHE REFUSES BUT DOES HAVE ANOTHER CUP OF COFFEE. PT CONCERNED OVER LOW BP TAKEN ON NOC SHIFT. REASSURED HER IT IS COMING UP AND WILL CONTINUE TO MONITOR. MOTHER REMAINS AT BEDSIDE. PT DENIES DISCOMFORTS AT THIS TIME REVIEWED PAIN MEDS WITH HER SHE IS CONCERNED PERCOCET WILL LOWER BP AGREES SHE WILL TAKE TOLDOL AT 1000
--- NOTE | 2020-12-28 09:43 | NUR ---
PATIENT IN BED RESTING, MOM AT BEDSIDE. VITALS AND I&O'S CHARTED. PILLOWS UNDER RIGHT LEG READJUSTED. CALL LIGHT IN REACH. NO FURTHER NEEDS AT THIS TIME.
--- NOTE | 2020-12-28 13:39 | NUR ---
PT CONTINUES RESTING IN BED MOTHER PRESENT IN ROOM. PT DENIES PAIN AND AGREES SHE IS COMFORTABLE. WAITING FOR DR CLEMENS, SHE HOPE TO GO HOME TODAY.
--- NOTE | 2020-12-28 14:33 | NUR ---
DR CLEMENS IN TO SEE THIS PT MOTHER REMAINS PRESENT. WOUNDS AND HEALING DISCUSSED AT LENGTH, PLANS GOING FORWARD, PT'S REQUEST FOR VISTARIL OR SIMILAR FOR SLEEP. ALL QUESTIONS ANSWERED. LOW BP DISCUSSED WELL PLANS TO GET P/T AND CRUTCHES ASSIST PATIENT TO GET UP AND MOVING
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
--- NOTE | 2020-12-28 18:09 | NUR ---
PT CONTINUES WITH NO C/O PAIN, OR REQUESTS OF. MOM STILL AT BEDSIDE. DRESSINGS INTACT VERY SMALL AMOUNT OF DRAINAGE PRESENT. PT REFUSES UP TO CHAIR ANTICIPATES BEING UP AND MOBILE TOMORROW.
--- NOTE | 2020-12-28 18:19 | NUR ---
PT MOTHER REPORTS PT IS HAVEING A SEIZURE. PT RESTING IN BED MAKES EYE CONTACT THIS WOMEN'S LACROSSE COACH ENTERS THE ROOM NO OBVIOUS SIGNS OF SEIZURE ACTIVITY. ASSISTED UP TO TOILET BACK TO BED. REFUSES SEIZURE PADS DENIES NEEDS. PT AT BASELINE SMILING ANSWERING QUESTIONS CHANGING CHANNELS THIS WOMEN'S LACROSSE COACH LEAVES THE ROOM.
--- NOTE | 2020-12-28 19:17 | NUR ---
REPORT RECEIVED FROM DAY SHIFT RN. PT LYING IN BED ALERT AND ORIENTED. DENIES NEEDS AT THIS TIME. WHITE BOARD UPDATED. CALL LIGHT IN REACH.
--- NOTE | 2020-12-28 20:15 | NUR ---
PATIENT UP TO BEDSIDE COMMODE. PATIENT IS BACK IN BED. NO OTHER NEEDS AT THE TIME.
--- NOTE | 2020-12-28 21:14 | NUR ---
WAS UP TO BEDSIDE COMMODE. PATIENT IS BACK IN BED. V/S AND I&O DONE AND RECORDED. NO OTHER NEEDS AT THIS TIME.
--- NOTE | 2020-12-28 21:45 | NUR ---
EVENING ASSESSMENT COMPLETE. SCHEDULED MEDS ADMINISTERED PER EMAR. SCHEDULED PAIN MEDS AND PRN PAIN MEDS ADMINISTERED PT WITH INCREASED PAIN DUE TO FREQUENT BATHROOM TRIPS. GLUTEAL AREA AND RIGHT LATER THIGH DRESSING WITH MODERATE AMOUNT SEROSANG DRAINAGE. WILL WAIT FOR BETTER PAIN CONTROL BEFORE DRESSING CHANGE. CMS INTACT. PT WEAKER IN RUE AND RLE. DRESSING TO RIGHT LOWER LEG INTACT WITH SMALL AMOUNT SHADOWING. DRESSING TO RIGHT HAND INTACT. WARM BLANKET PROVIDED. NO FURTHER NEEDS AT THIS TIME.
--- NOTE | 2020-12-28 23:03 | NUR ---
PT UP TO BSC TO VOID. GAIT WEAK AND UNSTEADY. BACK TO BED, DARREN FAIR. INCREASED PAIN WITH MOVEMENT. DRESSINGS ON GLUTEAL AREA AND RIGHT LATER THIGH CHANGED WTIH ABD PADS. PT DENIES FURTHER NEEDS. MOM IN ROOM. CALL LIGHT IN REACH.
--- NOTE | 2020-12-29 02:00 | NUR ---
CALL LIGHT ANSWERED. PT UP TO BSC TO VOID WITH 1PA. BACK TO BED, DARREN FAIR. DRESSING TO RIGHT LATERAL THIGH CHANGED. PRN FOR PAIN ADMINISTERED FOR 8/10 RIGHT LEG PAIN.
--- NOTE | 2020-12-29 05:28 | NUR ---
CALL LIGHT ANSWERED. PT UP TO BSC WITH 1PA TO VOID. BACK TO BED, DARREN WELL. PT REQUESTING PRN FOR PAIN. PT STATES "TYLENOL DOESN'T DO ANYTHING FOR ME". SCHEDULED TYLENOL HELD AND PERCOCET ADMINISTERED. IV ABX INFUSING. NO FURTHER NEEDS. CALL LIGHT IN REACH.
--- NOTE | 2020-12-29 07:22 | NUR ---
PT RESTING EYES CLOSED AT SHIFT EXCHANGE LEFT UNDISTURBED. APPEARS COMFORTABLE.
--- NOTE | 2020-12-29 08:48 | NUR ---
THIS RN TO ROOM TO ASSIST WITH VITAL SIGNS AND I/O'S. VITAL SIGNS STBLE. PT EATING BREAKFAST WITH WITH MOTHER. HEAD OF BED ELEVATED TO 36 DEGREES. PT DENIES ADDITIONAL REQUESTS OR COMPLAINTS. CALL LIGHT WITHIN REACH. BED RAILS UP.
--- NOTE | 2020-12-29 08:51 | NUR ---
PT UP TO TOILET THEN BACK TO BED SITTING UPRIGHT FOR MORNING MEAL. MOTHER IS AT BEDSIDE. PT DENIES PAIN AT THIS TIME TORDOL ADMINISTERED ANTICIPATING P/T LATER TODAY. PT DENIES FURTHER NEEDS AT THIS TIME
--- NOTE | 2020-12-29 09:31 | NUR ---
DR CLEMENS IN TO SEE PT, MOTHER IS PRESENT. WOUNDS ASSESSED EDUCATION PROVIDED FOR PT AND MOTHER. DRAIN CARE DEMONSTRATED, UNDERSTANDING VERBALIZED. ALL QUESTIONS ANSWERED.
--- NOTE | 2020-12-29 09:40 | NUR ---
Spoke with pt and her mom. Pt is in good spirits. Reviewed needs to go home safely. Pt stating she is using a walker here as crutches hurt her hand. She has a walker at home, pt will stay in moms home as she has many steps into her apartment. Mom will care for October. Discussed HH and pt declines as she discussed with Dr. Anderson and she feels she and mom can complete dressing changes. Pt would like a toilet riser and a donut to sit on. They will order from [employer]. Pt has sitz bath she is using and RN will teach in use. Plans on dc to home, mother will assist her. Pt will dc when cleared by Dr. Anderson.
--- NOTE | 2020-12-29 10:00 | NUR ---
It was my pleasure to meet with Ms Clark this morning and her mother. I did inquire with Pam regarding her perception of her care here in the hospital. She stated that "They have gone out of the way to care for me, the care has been marvelous." Pam also commented that "the kitchen staff have been so unbelievably kind!" She also said "The attitude of the kitchen staff is amazing, they are always so upbeat and go out of the way to help." Again adding, "My care has been marvelous." Pam is pleased with the kindness of the staff and reports that they are helping her with pain managment, and explaining to her what her medications are for. Pam and her mom both deny concerns regarding her care in the hospital. Her mother is somewhat concerned about her care and dressing changes when they go home. Her mother was informed that the nurses would help teach her about the dressing changes before being discharged.
--- NOTE | 2020-12-29 10:39 | NUR ---
PT UP WORKING WITH P/T APPEARS TO BE DOING WELL, STEADY ON HER FEET USING A WALKER. MOTHER REMAINS PRESENT.
--- NOTE | 2020-12-29 15:45 | NUR ---
pt to shower all dressing removed pt showered well. pt demonstrates moving the drain bands in her wounds as instructed by dr pendleton. education provided all questions answered. wounds redressed pt resting in bed agrees she feels "great"
--- NOTE | 2020-12-29 19:34 | NUR ---
REPORT RECEIVED FROM DAY SHIFT RN. PT LYING IN BED RESTING ON LEFT SIDE WITH EYES CLOSED. MOM AT BEDSIDE. CALL LIGHT IN REACH. WHITE BOARD UPDATED.
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
--- NOTE | 2020-12-29 21:30 | NUR ---
PT UP TO BR WITH SBA AND FWW TO VOID. GAIT STEADY. DRESSINGS ON GLUTEAL AREA CHANGED. BACK TO BED, DARREN WELL. EVENING ASSESSMENT COMPLETE. SCHEDULED MEDS ADMINISTERED PER EMAR. PRN FOR PAIN ADMINISTERED FOR REPORTS OF 8/10 PAIN. DRESSINGS TO RLE AND RIGHT HAND CDI. DRESSING TO RIGHT LATERAL THIGH INTACT WITH SMALL AMOUNT SHADOWING NOTED. VS AND I&O WNL. MOM AT BEDSIDE. PT DENIES QUESTIONS OR CONCERNS. CALL LIGHT IN REACH.
--- NOTE | 2020-12-29 23:09 | NUR ---
CALL LIGHT ANSWERED. PT UP TO BR WITH SBA AND FWW TO VOID. BACK TO BED, DARREN WELL.
--- NOTE | 2020-12-30 01:20 | NUR ---
PT CALLED. ASSISTED TO STANDING POSITION, THEN TO BATHROOM. SLOW AMBULATION, WITH BRIEF LOSS OF BALANCE, SHE CORRECTED QUICKLY. VOIDED. ENSURED ABD'S PLACED OVER WOUNDS, BACK TO BED. REFUSED WARM BLANKET, RIGHT LEG ELEVATED ON PILLOW. ALL PERSONAL ITEMS WITHIN REACH.
--- NOTE | 2020-12-30 03:55 | NUR ---
CALL LIGHT ANSWERED. PT UP TO BR WITH FWW AND SBA TO VOID. GAIT STEADY. INCREASED PAIN WITH MOVEMENT. BACK TO BED, DARREN WELL. DRESSINGS TO GLUTEAL AREA CHANGED D/T SEROSANG DRAINAGE. PRN FOR PAIN ADMINISTERED PER EMAR. ASSESSMENT COMPLETE. CMS INTACT. PT DENIES FURTHER NEEDS. CALL LIGHT IN REACH.
--- NOTE | 2020-12-30 06:29 | NUR ---
PT UP TO BR WITH SBA. BACK TO BED, DARREN WELL. PRN ADMINISTERED FOR INCREASED RLE PAIN WITH AMBULATION. RLE ELEVATED ON PILLOWS. CMS INTACT. COFFEE AND FRESH WATER PROVIDED FOR PT AND MOM. NO FURTHER NEEDS.
--- NOTE | 2020-12-30 07:30 | NUR ---
REPORT RECIEVED FROM MIMA MARTINO, PT SITTING UP IN BED SAFELY W/ CALL LIGHT IN REACH. NO NEEDS AT THIS TIME.
--- NOTE | 2020-12-30 07:53 | NUR ---
PT AWAKE IN BED. WHITE BOARD UPDATED. WARM CLOTH GIVEN FOR FACE, PT BRUSHED THIER TEETH IN BED. MOTHER IN ROOM. CALL LIGHT WITHIN REACH. NO FURTHER NEEDS AT THIS TIME.
--- NOTE | 2020-12-30 08:07 | NUR ---
PT SITTING UP IN BED SAFELY W/ CALL LIGHT IN REACH. PT EATING BREAKFAST, NO C/O PAIN AT THIS TIME BUT IS REQUESTING PAIN MEDICATION PRIOR TO WORKING W/ PHYSICAL THERAPY. MORNING ASSESSMENT AND CARE PLAN COMPLETED. NO NEEDS AT THIS TIME.
--- NOTE | 2020-12-30 09:30 | NUR ---
Spoke with Pam and she and mom plan on dc to home today when see by Dr. Anderson. No change in plan for dc.
--- NOTE | 2020-12-30 10:11 | NUR ---
PT SITTING UP IN CHAIR WAITING FOR PHYSICAL THERAPY, PRN PAIN MEDS AND MORNING MEDS ADMINISTERED PER PROVIDER ORDER/PT REQUEST. NO OTHER NEEDS AT THIS TIME
--- NOTE | 2020-12-30 10:25 | NUR ---
It was again my pleasure to meet with Pam and her mother today. Both still feel as if Pam is receiving "very good care" here in the hospital. Pam is preparing for discharge today. Her mother was able to verbalize the plan for getting Pam home, and picking up her prescriptions. Pam's mother was somewhat concerned about obtaining dressing change supplies today while simutaneously trying to get Pam home, and care for her. I was able to assure them both that they would have supplies to go home, and that the extra stress of buying dressing supplies today should not be a concern for them. The charge nurse in the department, and the patients primary nurse is aware of this concern, and will assure that Pam has ample dressing change items upon discharge, ensuring a safe discharge, and continuation of quality patient care. Pam's mom also stated that she is comfortable changing the dressings if she has the supplies available. Neither Pam or her mom expressed further concerns. They did express gratitude to the Physical therapist, who, upon hearing Pam's concerns for loading herself in the pick-up at discharge, took time to go over with Pam and her mother, instructions for transfer and loading into the family pick-up. This information was greatly appreciated per Pam and her mother.
--- NOTE | 2020-12-30 11:26 | NUR ---
PT SITTING UP IN CAHIR W/ FEET ELEVATED RESTING SAFELY W/ CALL LIGHT IN REACH AND MOM IN ROOM. PT WORKED W/ PHYSICAL THERAPY AND TOLERATED WELL. PT DENIES PAIN, NO OTHER NEEDS AT THIS TIME.
--- NOTE | 2020-12-30 12:22 | NUR ---
PATIENT UP TO CHAIR, EATING LUNCH, DENIES PAIN OR OTHER NEEDS AT THIS TIME. PLANS TO HAVE MEDICATION BEFORE DISCHARGE.
[2020-12-30] MEDS ORDERED: OXYCODON-ACETA1 EAC2 PO (13:21)
[2020-12-30] MEDS ORDERED: IBUPROFEN600 MG PO (13:21)
[2020-12-30] MEDS ORDERED: DOXYCYCLINE HY100 MG PO (13:21)
--- NOTE | 2020-12-30 13:42 | NUR ---
PT SITTING UP IN CHAIR, IN TO SEE PT. PT WILL BE DISCHARGING HOME. PHARMACY IN ROOM TO GO OVER NEW HOME MEDS W/ PT.
--- NOTE | 2020-12-30 14:12 | NUR ---
PT DISCHARGED HOME W/ MOM, WRITTEN AND VERBAL DISCHARGE INSTRUCTIONS GIVEN TO PT, PT VERBALIZED UNDERSTANDING. PT TRANSFERED TO VEHICLE VIA WHEELCHAIR OUT THE STAFF HALLWAY W/ SECURITY FOR PT'S SAFETY AND PRIVACY. VSS ON RA. PT SENT HOME W/ SUPPLIES FOR DRESSING CHANGES.
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
== END 2020-12-30 14:00 | disposition home or self-care (01) | DRG 581 ==
LOC: ED 08:47 → MS 09:37
PROVIDERS: ADMIT Surgery; ATTEND Surgery
PROC: 0JQL0ZZ Repair Right Upper Leg Subcutaneous Tissue and Fascia, Open Approach (ICD-10-PCS; 2020-12-27)
PROC: 0JQ90ZZ Repair Buttock Subcutaneous Tissue and Fascia, Open Approach (ICD-10-PCS; 2020-12-27)
PROC: 0JQJ0ZZ Repair Right Hand Subcutaneous Tissue and Fascia, Open Approach (ICD-10-PCS; 2020-12-27)
PROC: 0WQN0ZZ Repair Female Perineum, Open Approach (ICD-10-PCS; 2020-12-27)
PROC: 3E0234Z Introduction of Serum, Toxoid and Vaccine into Muscle, Percutaneous Approach (ICD-10-PCS; 2020-12-27)
PROC: 0KQS0ZZ Repair Right Lower Leg Muscle, Open Approach (ICD-10-PCS; principal; 2020-12-27 09:20)
DX: S61.250A Open bite of right index finger without damage to nail, initial encounter (principal); S61.451A Open bite of right hand, initial encounter; S31.825A Open bite of left buttock, initial encounter; S31.815A Open bite of right buttock, initial encounter; S31.45XA Open bite of vagina and vulva, initial encounter; S71.151A Open bite, right thigh, initial encounter; S81.851A Open bite, right lower leg, initial encounter; Z20.822 Contact with and (suspected) exposure to COVID-19; G40.909 Epilepsy, unspecified, not intractable, without status epilepticus; K21.9 Gastro-esophageal reflux disease without esophagitis; F32.9 Major depressive disorder, single episode, unspecified; F41.9 Anxiety disorder, unspecified; G47.00 Insomnia, unspecified; W55.81XA Bitten by other mammals, initial encounter; Y92.79 Other farm location as the place of occurrence of the external cause; Z88.2 Allergy status to sulfonamides; Z88.8 Allergy status to other drugs, medicaments and biological substances; Z79.899 Other long term (current) drug therapy; Z87.891 Personal history of nicotine dependence
CPT/HCPCS: 00300; 36415; 73090; 73130; 73590; 80048; 80053; 82150; 82550; 83690; 84703; 85014; 85025; 86850; 86900; 86901; 90375; 90675; 96374; 96375; 97116; 97162; 97165; 97530; 97535; 99284-25; A9270; C9803; J0690; J1100; J1170; J1644; J1885; J2001; J2270; J2370; J2405; J2704; J3010; J7121; U0003

== ENCOUNTER 2021-01-26 08:17 | Day surgery (SDC) | payer OTHER ==
[~2021-01-26] VITALS: Ht 177.8 cm; Wt 77.3 kg
[~2021-01-26 08:17] MED LIST changes: +BUSPIRONE HCL30 MG PO; +CETIRIZINE HCL10 MG PO; +DESVENLAFAXINE100 M3 PO; +DOXYCYCLINE HY100 MG PO; +FLONASE ALLERG9.9 ML NAS; +HYDROXYZINE PAM25 MG PO; +IBU-200200 MG PO; +IBUPROFEN600 MG PO; +OXYCODON-ACETA1 EAC2 PO; +PSEUDOEPHEDRIN120 MG PO
--- NOTE | 2021-01-26 13:05 | NUR ---
01/26/21 1305 Sheets,Xin 1244 PT ARRIVED TO PACU ON 10 VIA MASK, PT WAKES AND DENIES PAIN, PT EASILY FALLS BACK TO SLEEP. VSS. 1249 O2 REMOVED AND PT TALKING TO RN PT REPORTS SMALL AMOUNT OF PAIN IN RIGHT LEG. 1300 PAIN MEDICATION PER EMAR, PT REPORTS 5-6/10 PAIN. 1305 PT RESTING IN BED WITH EYES CLOSED. NO GRIMACING OR MOANING NOTED.
[2021-01-26] MEDS ORDERED: OXYCODON-ACETA1 EAC2 PO (13:08)
--- NOTE | 2021-01-26 13:57 | NUR ---
1325: PATIENT BACK IN DAY SURGERY ROOM FROM PACU. RATES PAIN 5/10. RIGHT CALF DRESSING CDI. RIGHT HIP DRESSING CDI. SCD TO LEFT LEG ONLY. VS CHECKED. IV SITE WNL. PATIENT GIVEN ICE WATER, CRACKERS, AND PUDDING. MOTHER AT BEDSIDE. 1345: PATIENT ASSISTED OOB AND TO BATHROOM USING HER PERSONAL WALKER. GAIT STEADY. VOID WITHOUT DIFFICULTY. GAIT STEADY BACK TO ROOM. SCD REPLACED TO LEFT LEG. PATIENT MEDICATED FOR PAIN WITH 1 TAB OF PERCOCET. MOTHER AT BEDSIDE. CALL LIGHT WITHIN REACH.
--- NOTE | 2021-01-26 15:02 | NUR ---
1425: DISCHARGE INSTRUCTIONS GIVEN TO PATIENT AND MOTHER. VS CHECKED. PATIENT ASSISTED OOB AND TO GET DRESSED. 1434: IV DC'D WNL. TIP INTACT. DRESSING APPLIED. PATIENT DISCHARGED TO HOME WITH MOTHER VIA WHEELCHAIR.
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
== END 2021-01-26 14:34 | disposition home or self-care (01) ==
LOC: DS 08:17
PROVIDERS: ATTEND Surgery
PROC: 0JBN0ZZ Excision of Right Lower Leg Subcutaneous Tissue and Fascia, Open Approach (ICD-10-PCS; principal; 2021-01-26 09:40)
DX: S81.811A Laceration without foreign body, right lower leg, initial encounter (principal); I96 Gangrene, not elsewhere classified; S31.811A Laceration without foreign body of right buttock, initial encounter; S61.411A Laceration without foreign body of right hand, initial encounter; W55.89XA Other contact with other mammals, initial encounter; G40.909 Epilepsy, unspecified, not intractable, without status epilepticus; F41.9 Anxiety disorder, unspecified; J45.909 Unspecified asthma, uncomplicated; Z88.2 Allergy status to sulfonamides; Z88.8 Allergy status to other drugs, medicaments and biological substances
CPT/HCPCS: 00300; 80053; 84703; 85025; J0690; J1644; J2250; J2704; J3010; J7121

== ENCOUNTER 2021-03-05 14:09 | Emergency (ER) | payer OTHER ==
[~2021-03-05] VITALS: Ht 177.8 cm; Wt 77.5 kg
[2021-03-05] MEDS ORDERED: METRONIDAZOLE250 MG PO (15:43)
[2021-03-05] MEDS ORDERED: DOXYCYCLINE HY100 MG PO (15:43)
== END 2021-03-05 15:51 | disposition home or self-care (01) ==
LOC: ED 14:09
DX: S71.151D Open bite, right thigh, subsequent encounter (principal); L08.9 Local infection of the skin and subcutaneous tissue, unspecified; G40.909 Epilepsy, unspecified, not intractable, without status epilepticus; K21.9 Gastro-esophageal reflux disease without esophagitis; G47.00 Insomnia, unspecified; F17.200 Nicotine dependence, unspecified, uncomplicated; Z88.8 Allergy status to other drugs, medicaments and biological substances; Z88.2 Allergy status to sulfonamides; Z79.899 Other long term (current) drug therapy; W55.81XD Bitten by other mammals, subsequent encounter
CPT/HCPCS: 10160; 99283-25

== ENCOUNTER 2021-06-05 11:18 | Emergency (ER) | payer OTHER ==
[~2021-06-05] VITALS: Ht 177.8 cm; Wt 85.2 kg
[~2021-06-05 11:18] MED LIST changes: +ACETAMINOPHEN500 MG PO; +METRONIDAZOLE250 MG PO
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
[2021-06-05] MEDS ORDERED: OMEPRAZOLE20 MG PO (11:46)
[2021-06-05] MEDS ORDERED: CEPHALEXIN500 M1 PO (13:23)
== END 2021-06-05 14:38 | disposition home or self-care (01) ==
LOC: ED 11:18
DX: L03.115 Cellulitis of right lower limb (principal); G40.909 Epilepsy, unspecified, not intractable, without status epilepticus; K21.9 Gastro-esophageal reflux disease without esophagitis; G47.00 Insomnia, unspecified; F17.200 Nicotine dependence, unspecified, uncomplicated; Z88.8 Allergy status to other drugs, medicaments and biological substances; Z88.2 Allergy status to sulfonamides; Z79.899 Other long term (current) drug therapy
CPT/HCPCS: 80053; 85025; 93971; 96365; 99284-25; A9270; J0696

== ENCOUNTER 2021-09-23 03:43 | Emergency (ER) | payer OTHER ==
[~2021-09-23] VITALS: Ht 177.8 cm; Wt 86.2 kg
[~2021-09-23 03:43] MED LIST changes: +CEPHALEXIN500 M1 PO
--- OUTSIDE RECORDS SUMMARY | 2021-09-23 03:46 | XMS ---
PreManage Notification: THOMAS Security Cooker Cleaner Events No recent Security Events currently on file CRITERIA MET - [facility] CARE PROVIDERS RICHARD SAMAYOA Physician Solvent Plant Operator 12/28/2020-Current PHONE: Unknown Leo has no Care Guidelines for this patient. Care History Medical/Surgical 08/10/2020 [facility] - PATIENT FOLLOW UP APT WITH PCP RICHARD SAMAYOA AT DR DUQUE OFFICE 2020. Marcia VISIT COUNT (12 MO.) [address] TOTAL 5 NOTE: Visits indicate total known visits. ED/UCC VISIT TRACKING (12 MO.) 09/23/2021 03:43 [facility] TYPE: Emergency COMPLAINT: - LOWER ABD PAIN 06/05/2021 11:19 [facility] TYPE: Emergency COMPLAINT: - POSS INFECTION IN LEG DIAGNOSES: - Cellulitis of right lower limb - Gastro-esophageal reflux disease without esophagitis - Allergy status to other drugs, medicaments and biological substances - Other longterm (current) drug therapy - Epilepsy, unspecified, not intractable, without status epilepticus - Allergy status to sulfonamides - Nicotine dependence, unspecified, uncomplicated - Insomnia, unspecified 05/19/2021 15:37 [facility] TYPE: Emergency DIAGNOSES: - Rash - Dermatitis, unspecified 03/05/2021 14:10 [facility] [place] TYPE: Emergency COMPLAINT: - R THIGH WOUND [...] by other mammals, subsequent encounter - Other termination clerk (current) drug therapy 12/27/2020 08:47 [facility] [place] TYPE: Emergency COMPLAINT: - ANIMAL BITE INPATIENT VISIT TRACKING (12 MO.) 12/27/2020 09:37 [facility] [place] TYPE: Medical Surgical COMPLAINT: - MULTIPLE PUNCTURE INJURIES/BLOOD LOSS/R HAND CRUSH DIAGNOSES: - Other termination clerk (current) drug therapy - Open bite of [...] by other mammals, initial encounter - Other longterm (current) drug therapy [email or web address]
[2021-09-23] MEDS ORDERED: ONDANSETRON ODT8 MG PO (06:03)
[2021-09-23] MEDS ORDERED: FLOMAX0.4 MG PO (06:03)
[2021-09-23] MEDS ORDERED: PERCOCET 5-3251 EACH PO (06:03)
== END 2021-09-23 06:25 | disposition home or self-care (01) ==
LOC: ED 03:43
DX: N13.2 Hydronephrosis with renal and ureteral calculous obstruction (principal); G40.909 Epilepsy, unspecified, not intractable, without status epilepticus; K21.9 Gastro-esophageal reflux disease without esophagitis; G47.00 Insomnia, unspecified; F17.200 Nicotine dependence, unspecified, uncomplicated; Z88.2 Allergy status to sulfonamides; Z88.8 Allergy status to other drugs, medicaments and biological substances; Z79.899 Other long term (current) drug therapy
CPT/HCPCS: 36415; 74177; 80053; 81001; 83690; 85025; 96375; 99284-25; A9270; J1170; J2405; J7030; Q9967

== ENCOUNTER 2021-12-20 14:44 | Emergency (ER) | payer OTHER ==
[~2021-12-20] VITALS: Ht 175.3 cm; Wt 90.7 kg
[~2021-12-20 14:44] MED LIST changes: +FLOMAX0.4 MG PO; +ONDANSETRON ODT8 MG PO; +PERCOCET 5-3251 EACH PO
--- OUTSIDE RECORDS SUMMARY | 2021-12-20 14:46 | XMS ---
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 Care History Medical/Surgical 08/10/2020 [facility] - PATIENT FOLLOW UP APT WITH PCP RICHARD SAMAYOA AT DR DUQUE OFFICE 2020. Marcia VISIT COUNT (12 MO.) [address] TOTAL 6 NOTE: Visits indicate total known visits. ED/UCC VISIT TRACKING (12 MO.) 12/20/2021 14:44 [facility] TYPE: Emergency COMPLAINT: - CHEST PAIN 09/23/2021 03:43 [facility] TYPE: Emergency COMPLAINT: - LOWER ABD PAIN DIAGNOSES: - Insomnia, unspecified - Allergy status to other drugs, medicaments and biological substances - Hydronephrosis with renal and ureteral calculous obstruction - Left lower quadrant pain - Gastro-esophageal reflux disease without esophagitis - Epilepsy, unspecified, not intractable, without status epilepticus - Allergy status to sulfonamides - Nicotine dependence, unspecified, uncomplicated - Other senior care (current) drug therapy 06/05/2021 11:19 [facility] TYPE: Emergency COMPLAINT: - POSS INFECTION IN LEG DIAGNOSES: - Cellulitis of right lower limb - Gastro-esophageal reflux disease without esophagitis - Allergy status to other drugs, medicaments and biological substances - Other senior care (current) drug therapy - Epilepsy, unspecified, not intractable, without status epilepticus - Allergy status to sulfonamides - Nicotine dependence, unspecified, uncomplicated - Insomnia, unspecified [facility] DIAGNOSES: - Rash - Dermatitis, unspecified 03/05/2021 14:[address] 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
--- NOTE | 2021-12-20 21:30 | EKG ---
[facility] [address] [facility] [place], [place] [address] Signed Normal sinus rhythm Normal ECG No previous ECGs available Confirmed by MUKUND GRAY MD ([id number]) on 12/20/2021 9:30:36 PM Electronically Signed By: MUKUND GRAY MD 12/20/212129 PATIENT NAME: YOAN GUZMAN Electrocardiogram DATE OF : 70 PHYSICIAN: MUKUND GRAY MD REPORT #: [id number] REPORT IS CONFIDENTIAL AND NOT TO BE RELEASED WITHOUT AUTHORIZATION
== END 2021-12-20 18:51 | disposition home or self-care (01) ==
LOC: ED 14:44
DX: R07.2 Precordial pain (principal); K21.9 Gastro-esophageal reflux disease without esophagitis; J02.9 Acute pharyngitis, unspecified; G40.909 Epilepsy, unspecified, not intractable, without status epilepticus; G47.00 Insomnia, unspecified; F17.200 Nicotine dependence, unspecified, uncomplicated; Z88.8 Allergy status to other drugs, medicaments and biological substances; Z88.2 Allergy status to sulfonamides; Z79.899 Other long term (current) drug therapy
CPT/HCPCS: 36415; 70360; 70491; 71045; 80053; 81001; 82150; 83735; 84484; 85025; 93005; 93010; 99285-25; Q9967

== ENCOUNTER 2022-11-19 19:12 | Emergency (ER) | payer OTHER ==
[~2022-11-19] VITALS: Ht 175.3 cm; Wt 89.4 kg
[~2022-11-19 19:12] MED LIST changes: +REXULTI2 MG PO
--- OUTSIDE RECORDS SUMMARY | 2022-11-19 19:14 | XMS ---
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 Care History Medical/Surgical 08/10/2020 [facility] - PATIENT FOLLOW UP APT WITH PCP RICHARD SAMAYOA AT DR DUQUE OFFICE 2020. ERosieDRosie VISIT COUNT (12 MO.) [address] [place] [address] TOTAL 3 NOTE: Visits indicate total known visits. ED/UCC VISIT TRACKING (12 MO.) 11/19/2022 19:12 [facility] TYPE: Emergency COMPLAINT: - THROAT PAIN 03/09/2022 00:31 [facility] TYPE: Emergency COMPLAINT: - POSS MEDICATION REACTION DIAGNOSES: - Adverse effect of unspecified drugs, medicaments and biological substances, initial encounter - Allergy status to other drugs, medicaments and biological substances - Allergy status to sulfonamides - Anxiety disorder, unspecified - Depression, unspecified - Epilepsy, unspecified, not intractable, without status epilepticus - Gastro-esophageal reflux disease without esophagitis - Headache, unspecified - Nicotine dependence, unspecified, uncomplicated - Other drug induced dystonia - Other fpc (current) drug therapy 12/20/2021 14:[address] [facility] TYPE: Emergency COMPLAINT: - CHEST PAIN DIAGNOSES: - Acute pharyngitis, unspecified - Allergy status to other drugs, medicaments and biological substances - Allergy status to sulfonamides - Epilepsy, unspecified, not intractable, without status epilepticus - Gastro-esophageal reflux disease without esophagitis - Insomnia, unspecified - Nicotine dependence, unspecified, uncomplicated - Other fpc (current) drug therapy - Precordial pain INPATIENT VISIT TRACKING (12 MO.) No inpatient visits to display in this time frame [id number]
[2022-11-19 22:14] VITALS: BP 155/95
== END 2022-11-19 22:10 | disposition home or self-care (01) ==
LOC: ED 19:12
DX: F44.4 Conversion disorder with motor symptom or deficit (principal); K21.9 Gastro-esophageal reflux disease without esophagitis; F17.200 Nicotine dependence, unspecified, uncomplicated; Z88.2 Allergy status to sulfonamides; Z79.899 Other long term (current) drug therapy
CPT/HCPCS: 36415; 70490; 70492; 71045; 80053; 81003; 83735; 84443; 84703; 85025; J1200; J2060; J2405

== ENCOUNTER 2025-02-09 14:50 | Emergency (ER) | payer OTHER ==
[~2025-02-09] VITALS: Ht 175.3 cm; Wt 76.8 kg
[2025-02-09] MEDS ORDERED: ONDANSETRON 4 MG TAB ODT SL ONE (16:00)
[2025-02-09] MEDS ORDERED: IBUPROFEN 600 MG TAB PO ONE (16:00)
[2025-02-09] MEDS ORDERED: HYDROCODONE/ACETA 5/325 TAB PO ONE (16:00)
[2025-02-09 17:15] LABS: BLOOD/HGB, URINE NEGATIVE (Negative); KETONE, URINE NEGATIVE (Negative); LEUK ESTERASE, URINE NEGATIVE (negative); NITRITE, URINE NEGATIVE (negative)
[2025-02-09 17:35] VITALS: BP 133/86
== END 2025-02-09 17:35 | disposition home or self-care (01) ==
LOC: ED 14:50
PROVIDERS: Emergency Medicine
DX: R10.32 Left lower quadrant pain (principal); F17.200 Nicotine dependence, unspecified, uncomplicated; Z79.899 Other long term (current) drug therapy; Z79.51 Long term (current) use of inhaled steroids; Z88.2 Allergy status to sulfonamides; Z88.8 Allergy status to other drugs, medicaments and biological substances
CPT/HCPCS: 74176; 81003; 99284-25; A9270

== ENCOUNTER 2025-03-08 17:26 | Emergency (ER) | payer OTHER ==
[~2025-03-08] VITALS: Ht 175.3 cm; Wt 72.0 kg
--- OUTSIDE RECORDS SUMMARY | 2025-03-08 17:33 | XMS ---
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 SARA Knapp Clinic/Center: Primary Care MD BHAVANA Leong \F\ <UNAVAIL> PHONE: [phone] Leo has no Care Guidelines for this patient. Care History Medical/Surgical 08/10/2020 [facility] \R\- PATIENT FOLLOW UP APT WITH PCP RICHARD SAMAYOA AT DR [facility]QUE OFFICE 08/17/2020. Marcia VISIT COUNT (12 MO.) 2 [facility] TOTAL 2 NOTE: Visits indicate total known visits. ED/UCC VISIT TRACKING (12 MO.) 03/08/2025 17:27 [facility] TYPE: Emergency COMPLAINT: - ABDOMINAL PAIN 02/09/2025 14:[address] 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
[2025-03-08 17:59] LABS: BASOPHILS 0.3 % (0.1-1.2); EOSINOPHILS 0.9 % (0.7-5.8); LYMPHOCYTES 55.6 % (19.3-51.7); MCH 30.9 PG (25.6-32.2); MCHC 35.6 g/dL (32.2-35.5); MCV 86.8 fL (79.4-94.8); MONOCYTES 11.1 % (4.7-12.5); NEUTROPHILS 31.8 % (34.0-71.1); RBC 3.72 M/uL (3.93-5.22)
[2025-03-08 18:17] LABS: BLOOD/HGB, URINE NEGATIVE (Negative); KETONE, URINE TRACE (Negative); LEUK ESTERASE, URINE NEGATIVE (negative); NITRITE, URINE NEGATIVE (negative)
[2025-03-08 18:18] LABS: ALT (SGPT) 21.0 U/L (14-59); AST (SGOT) 18.0 U/L (15-37); GLOMERULAR FILTRATION RATE,EST 107.0 mL/min (>60); PROTEIN, TOTAL 7.5 g/dL (6.4-8.2); UREA NITROGEN 11.0 mg/dL (7-18)
[2025-03-08] MEDS ORDERED: HYDROmorphone HCL 1 MG/ML SYR IV PRN (18:30)
[2025-03-08] MEDS ORDERED: KETOROLAC TROMETHAMINE 30 MG/ML VIAL IV ONE (18:30)
[2025-03-08] MEDS ORDERED: HYDROCODON-ACE1 EA10 PO (19:28)
[2025-03-08] MEDS ORDERED: ONDANSETRON ODT8 MG PO (19:28)
[2025-03-08] MEDS ORDERED: HYDROCODONE BIT/ACETAMINOPHEN 5/325 MG 1 TAB HOME.PACK PO ONE (19:30)
[2025-03-08 19:53] VITALS: BP 142/98
== END 2025-03-08 19:49 | disposition home or self-care (01) ==
LOC: ED 17:26
PROVIDERS: Emergency Medicine
DX: M54.50 Low back pain, unspecified (principal); M25.552 Pain in left hip; F17.200 Nicotine dependence, unspecified, uncomplicated; Z88.2 Allergy status to sulfonamides; Z88.8 Allergy status to other drugs, medicaments and biological substances; Z79.899 Other long term (current) drug therapy
CPT/HCPCS: 36415; 80053; 81003; 83690; 84703; 85025; 96374; 96375; 99284-25; A9270; J1171; J1885; J2405